=== PATIENT | male | born 1945 | race Caucasian/White ===

== ENCOUNTER → 2021-04-24 09:01 | Outpatient (CLI) | payer OTHER, SELFPAY ==
[2021-04-24 13:48] LABS: COVID19 -Nasal RAPID Negative (Negative)
== END ==
PROVIDERS: Family Provider Family Medicine; PCP Family Medicine; Visit Provider Student in an Organized Health Care Education/Training Program
DX: Z01.812 Encounter for preprocedural laboratory examination (principal); Z20.822 Contact with and (suspected) exposure to COVID-19
CPT/HCPCS: 87635

== ENCOUNTER → 2021-04-25 07:44 | Outpatient (CLI) | payer OTHER, SELFPAY ==
--- NOTE | 2021-04-25 18:08 | DI.NM.S_ITS ---
DATE OF SERVICE: 04/25/2021 PROCEDURE PERFORMED: Exercise treadmill stress and rest myocardial perfusion imaging with gating to assess ejection fraction and regional wall motion. ORDERING PROVIDER: Dr. Emilia Siddiqi. INDICATIONS: The patient is a 76-year-old male with exertional dyspnea and recently discovered paroxysmal atrial fibrillation. EXERCISE TREADMILL TESTING: The patient was able to exercise for 7 minutes on a standard Can protocol suggesting very good exercise capacity with an ELLIOT of - 21%. He had a normal heart rate and blood pressure response to exercise, achieving a maximum heart rate of 139 BPM (110% of his predicted maximum). He had no chest discomfort or other anginal symptoms. His resting ECG shows sinus rhythm with normal ST segments. With exercise, he has increasingly frequent PACs, at times, in a bigeminal pattern with subsequent brief atrial tachycardia with a more prolonged episode of atrial tachycardia in the immediate recovery phase with heart rate up to 173 BPM that was self-limited, spontaneously converting back to sinus rhythm with PACs, briefly consecutively. There were no significant ST-segment shifts to suggest ischemia. At 6 minutes of exercise at a heart rate of 136 BPM, 24.6 millicuries of technetium-99m Myoview was injected and he was imaged 15 minutes later using a gated SPECT acquisition protocol. Earlier in the day while at rest, he had been injected with 11.0 millicuries of technetium-99m Myoview and imaged 20 minutes later, again using a gated quantitated SPECT protocol. FINDINGS: 1. Raw data: There is fairly good myocardial tracer uptake. Lung/heart ratio was normal at 0.29 with a normal TID ratio 0.76. 2. Quantitated gated SPECT: Post-stress ejection fraction is estimated at 60% without any focal wall motion abnormality. Resting ejection fraction is 68%. Left ventricular volumes are moderately increased with a resting end-diastolic volume of 177 mL. 3. Myocardial perfusion imaging: Post-stress supine images shows a fairly normal myocardial perfusion pattern with a mild defect in the proximal to mid inferior wall that resolves on prone imaging, consistent with diaphragmatic attenuation. The resting images show an identical perfusion pattern without any obvious areas of significant improvement. IMPRESSION: 1. Normal myocardial perfusion study for ischemia. 2. Mild fixed proximal to mid inferior wall perfusion defect that resolves on prone imaging, most consistent with diaphragmatic attenuation artifact. There is no evidence for significant myocardial ischemia or previous myocardial infarction. 3. Normal left ventricular systolic function with moderately increased left ventricular volumes but no focal wall motion abnormality. 4. Very good exercise capacity without angina or ECG evidence of ischemia. He had increasingly frequent supraventricular ectopy with a run of a regular atrial tachycardia in the immediate post-exercise phase at 173bpm that was self- limited. Dre Miller - Tanna/brandi doc#: [id number]/job#: [id number] dd: 04/25/2021 13:11:00 dt: 04/25/2021 17:39:00 DICTATING MD/COPIES TO: Chris Aguirre MD; Emilia Siddiqi DO COPIES MNE: SERVANDO;
== END ==
PROVIDERS: Family Provider Family Medicine; PCP Family Medicine; Referring Provider Family Medicine; Visit Provider Family Medicine
DX: I48.91 Unspecified atrial fibrillation (principal); I48.0 Paroxysmal atrial fibrillation; R06.00 Dyspnea, unspecified
CPT/HCPCS: 78452; 93017; A9502

== ENCOUNTER 2021-09-11 10:54 | Emergency (ER) | payer OTHER, SELFPAY ==
[2021-09-11 12:06] VITALS: BP 160/96; PULSE 62; RESP 18; TEMP 36.6; O2SAT 99; BMI 23.6
--- NOTE | 2021-09-11 12:25 | DI.US.S_ITS ---
PROCEDURE: US PERIPH VENOUS LOW EXTREM RT INDICATIONS: CALF PAIN TECHNIQUE: Real-time imaging, as well as color and pulse Doppler interrogation, were performed of the lower extremity deep veins from the inguinal ligament to the popliteal fossa. COMPARISON: None. FINDINGS: The common femoral, femoral and popliteal veins are normally compressible, and free of intraluminal thrombus. Color and pulse Doppler demonstrate normal phasic intraluminal flow. There is normal augmentation response to distal compression maneuver. IMPRESSION: No sonographic evidence of DVT. Dictated by: Heladio Montes M.D. on 09/11/2021 at 12:51 Approved by: Heladio Montes M.D. on 09/11/2021 at 12:51
--- NOTE | 2021-09-11 12:38 | ED.EXTPRO ---
HPI - Extremity Problem <Talha Mariano PA-C - Last Filed: 09/11/21 19:23> General Chief complaint: Extremity Problem,Nontraumatic Stated complaint: calf problem, possible blood clot Time Seen by Provider: 09/11/21 12:15 Source: patient Mode of arrival: Ambulatory History of Present Illness HPI Narrative: Patient is a 76-year-old male presenting to the emergency department today for right calf pain that began approximately 3 days ago. Patient states that he has experienced a ?dull throbbing? pain deep in his right calf for the past 3 days, noting that he woke up in the middle of the night last night with the pain. Of note, patient denies any recent trauma or surgeries, long car rides or plane rides, or history cancer. Patient denies pain elsewhere other than his right calf. No fever, chills, chest pain, cough, shortness of breath, pain with deep inspiration, diaphoresis, nausea, vomiting, diarrhea, abdominal pain, dysuria, hematuria, or any other concerning symptoms reported. Patient states that he is anticoagulated daily and has been taking his medications routinely. No other concerns were voiced at this time. Related Data Home Medications Medication Instructions Recorded Confirmed [IRON] 1 tab PO QPM #0 12/30/17 aspirin 81 mg tablet,delayed 81 mg PO QPM #0 12/30/17 release fenofibrate 160 mg tablet 160 mg PO QPM #0 12/30/17 lisinopril 10 mg tablet 10 mg PO QPM #0 12/30/17 multivitamin (Multiple Vitamins) 1 tab PO QPM #0 12/30/17 Previous Rx's Medication Instructions Recorded gzuxzhsrvv-jbufqprhsmvwh-qrmherth 1 - 2 tab PO Q4HP PRN #20 tab 12/30/17 50 mg-325 mg-40 mg tablet Allergies Allergy/AdvReac Type Severity Reaction Status Date / Time No Known Allergies Allergy Uncoded 12/30/17 15:40 Review of Systems <Talha Mariano PA-C - Last Filed: 09/11/21 19:23> Constitutional Constitutional: Denies chills, Denies fatigue, Denies fever(s), Denies frequent falls, Denies lethargy and Denies weakness Eyes Eyes: Denies loss of vision ENT Ears, Nose, Mouth, and Throat: Denies dizziness and Denies neck pain Cardiovascular Cardiovascular: Denies chest pain, Denies irregular heart rhythm, Denies lightheadedness, Denies palpitations, Denies dyspnea, Denies dyspnea on exertion and Denies orthopnea Respiratory Respiratory: Denies cough, Denies dyspnea, Denies dyspnea on exertion and Denies wheezing Gastrointestinal Gastrointestinal: Denies abdominal pain, Denies change in bowel habits, Denies diarrhea, Denies nausea and Denies vomiting Genitourinary Genitourinary: Denies hematuria, Denies flank pain, Denies urinary incontinence and Denies urinary urgency Musculoskeletal Musculoskeletal: Denies back pain, Denies joint swelling, Denies muscle weakness, Reports myalgias (Right calf pain), Denies neck pain, Denies numbness, Denies tingling and Reports other Integumentary/Breasts Skin/Breast: Denies pruritus, Denies erythema, Denies rash and Denies wounds Neurologic Neurologic: Denies behavioral changes, Denies confusion, Denies dizziness, Denies frequent falls, Denies loss of vision, Denies numbness, Denies tingling and Denies weakness Psychiatric Psychiatric: Denies behavioral changes and Denies confusion Endocrine Endocrine: Denies fatigue and Denies palpitations Allergic/Immunologic Allergic/Immunologic: Denies wheezing Patient History <Talha Mariano PA-C - Last Filed: 09/11/21 19:23> Social History Smoking Status: Never smoker Smoking Status: Never smoker alcohol intake frequency: 0-2 drinks per day Substance Use Type: does not use Exam <Talha Mariano PA-C - Last Filed: 09/11/21 19:23> Narrative Exam Narrative: GENERAL: [] year old patient appears stated age. Well-developed patient, in mild distress. HEAD: Atraumatic. Normocephalic. EYES: Pupils equal round and reactive. Extraocular motions intact. No scleral icterus. No injection or drainage. ENT: Nose without bleeding, purulent drainage. Throat without erythema, tonsillar hypertrophy or exudate. Airway patent. NECK: Trachea midline. Non tender CARDIOVASCULAR: Regular rate and rhythm without murmurs, gallops, or rubs. RESPIRATORY: Clear to auscultation. Breath sounds equal bilaterally. No wheezes, rales, or rhonchi. GASTROINTESTINAL: Abdomen soft, non-tender, nondistended. EXTREMITIES: No edema or joint tenderness. No significant swelling noted about the right lower extremity. No tenderness to palpation throughout the right calf, negative Homans sign. Tortuous varicose vein noted along the medial aspect of the right calf just inferior to the right medial knee. No appreciable warmth, erythema, or swelling noted about the calf. BACK: Nontender without deformity or crepitance. No flank tenderness. NEURO: AOx3. SKIN: No rash or erythema of visible areas Initial Vital Signs Initial Vital Signs: Vital Signs Temperature 97.9 F 09/11/21 12:06 Pulse Rate 62 09/11/21 12:06 Respiratory Rate 18 09/11/21 12:06 Blood Pressure 160/96 H 09/11/21 12:06 Pulse Oximetry 99 09/11/21 12:06 <Joya Marino MD - Last Filed: 09/18/21 07:30> Initial Vital Signs Initial Vital Signs: Vital Signs Temperature 97.9 F 09/11/21 12:06 Pulse Rate 62 09/11/21 12:06 Respiratory Rate 18 09/11/21 12:06 Blood Pressure 160/96 H 09/11/21 12:06 Pulse Oximetry 99 09/11/21 12:06 Course <Talha Mariano PA-C - Last Filed: 09/11/21 19:23> Course Course Narrative: Ultrasound of the right lower extremity obtained. Orders Ordered: ED Orders 09/11/21 12:25 US periph venous low extrem rt Stat Vital Signs Vital signs: Vital Signs - 8 hr 09/11/21 12:06 09/11/21 12:58 Temperature 97.9 F Pulse Rate 62 63 Respiratory Rate 18 18 Blood Pressure 160/96 H 165/98 H Pulse Oximetry 99 99 <Joya Marino MD - Last Filed: 09/18/21 07:30> Orders Ordered: ED Orders 09/11/21 12:25 US periph venous low extrem rt Stat Vital Signs Vital signs: Vital Signs - 8 hr 09/11/21 12:06 09/11/21 12:58 Temperature 97.9 F Pulse Rate 62 63 Respiratory Rate 18 18 Blood Pressure 160/96 H 165/98 H Pulse Oximetry 99 99 MDM - Extremity (Nontraumatic) <Talha Mariano PA-C - Last Filed: 09/11/21 19:23> Imaging Data US - DVT: Radiologist's Impression: PROCEDURE:? US PERIPH VENOUS LOW EXTREM RT ? INDICATIONS:? CALF PAIN ? TECHNIQUE:? Real-time imaging, as well as color and pulse Doppler interrogation, were performed of the lower extremity deep veins from the inguinal ligament to the popliteal fossa.? ? COMPARISON:? None. ? FINDINGS:? The common femoral, femoral and popliteal veins are normally compressible, and free of intraluminal thrombus.? Color and pulse Doppler demonstrate normal phasic intraluminal flow.? There is normal augmentation response to distal compression maneuver. ? ? IMPRESSION:? No sonographic evidence of DVT. ? ? Dictated by: Heladio Montes M.D. on 09/11/2021 at 12:51 ? ? Approved by: Heladio Montes M.D. on 09/11/2021 at 12:51 ? MDM Narrative Medical decision making narrative: To consider DVT versus superficial venous thrombosis versus thrombophlebitis versus cellulitis versus musculoskeletal pain versus muscle strain. Overall physical examination, history, and imaging are reassuring. Ultrasound of the right lower extremity in the emergency department stay returned negative for DVT. Discussed with patient results of imaging. At this time patient feels comfortable being discharged home. Strict return precautions were discussed with the patient prior to discharge. Discharge Plan Departure Patient Disposition: Home Clinical Impression: Acute pain of right lower extremity Instructions: DI for Leg Pain Activity Restrictions/Additional Instructions: *You have been diagnosed with acute right leg pain *What to do: *Please continue to take your regular medications as directed. [ ] New medication prescriptions sent to your pharmacy: [ ] [ ] New medication written as a paper prescription [X] No new medications given *Please follow up with your primary care provider in 2-3 days, call for an appointment. Let them know you were seen in the Emergency Department and that we ask that you be seen in follow up. We will electronically transmit a record of today's note if your PCP is in our system *If you do not have a primary care provider please contact the [facility] Resource line at [phone]. They will ask some questions about your medical history and help get you set up with a doctor in the community. *Return to Emergency Department if you should have any new, worsening or concerning symptoms, such as fever greater than 101 F, shaking chills, worsening pain, shortness of breath, chest pain, lower extremity swelling, persistent vomiting or other bothersome symptoms Prescriptions: No Action multivitamin [Multiple Vitamins] 1 EACH tablet 1 tab PO QPM Qty: 0 0RF fenofibrate 160 MG tablet 160 mg PO QPM Qty: 0 0RF lisinopril 10 MG tablet 10 mg PO QPM Qty: 0 0RF [IRON] 1 tab PO QPM Qty: 0 0RF aspirin 81 MG tablet,delayed release (DR/EC) 81 mg PO QPM Qty: 0 0RF fmartwbawg-uzpabwuumtkyv-iejp 1 EACH tablet 1 - 2 tab PO Q4HP PRNQty: 20 0RF Referrals: Alex Santos MD [Primary Care Provider] - <Joya Marino MD - Last Filed: 09/18/21 07:30> Cosign ED Attending Cosignature Attestation: I was immediately available in the department for consultation throughout this patient's visit. I agree with documentation as above. Joya Marino MD
[2021-09-11 12:58] VITALS: BP 165/98; PULSE 63; RESP 18; O2SAT 99
== END 2021-09-11 13:13 | disposition home or self-care (01) ==
PROVIDERS: Emergency Provider Physician Assistant; Family Provider Family Medicine; PCP Family Medicine
DX: M79.661 Pain in right lower leg (principal); Z79.82 Long term (current) use of aspirin
CPT/HCPCS: 93971; 99283; 99284

== ENCOUNTER 2021-11-19 09:08 | Emergency (ER) | payer OTHER, SELFPAY ==
[2021-11-19] VITALS (13 sets, daily range): BP systolic 110–145; BP diastolic 65–87; PULSE 52–79; RESP 15–33; TEMP 36.6; O2SAT 95–98; BMI 23.7
--- NOTE | 2021-11-19 09:16 | DI.RAD.S_ITS ---
PROCEDURE: XR CHEST 1V INDICATIONS: chest pain TECHNIQUE: One view of the chest was acquired. COMPARISON: None. FINDINGS: Surgical changes and devices: None. Lungs and pleura: Lungs are clear. No pleural effusions or pneumothorax. Mediastinum: Mediastinal contours appear normal. Heart size is normal. Bones and chest wall: No suspicious bony lesions. Overlying soft tissues appear unremarkable. IMPRESSION: No acute cardiopulmonary findings. Dictated by: Melody Sheppard M.D. on 11/19/2021 at 9:45 Approved by: Melody Sheppard M.D. on 11/19/2021 at 9:45
[2021-11-19 09:48] LABS: Add Manual Diff / Slide Review NO; Basophils Absolute Auto 0 /uL (0-100); Basophils Percent Auto 0.9 % (0-2); Eosinophils Absolute Auto 200 /uL (0-450); Eosinophils Percent Auto 3.8 % (2-4); Hematocrit 40.3 % (41-53); Hemoglobin 13.4 g/dL (13.5-17.5); Lymphocytes Absolute Auto 1000 /uL (1100-4500); Lymphocytes Percent Auto 23.9 % (25-40); Mean Corpuscular HGB Conc 33.4 % (30-36); Mean Corpuscular Hemoglobin 31.3 PG (26-34); Mean Corpuscular Volume 93.7 fL (80-100); Monocytes Absolute Auto 300 /uL (0-900); Monocytes Percent Auto 7.2 % (3-14); Neutrophils Absolute Auto 2600 /uL (1500-7000); Neutrophils Percent Auto 64.2 % (50-75); Platelet Count 276 X10^3/uL (150-400); Red Cell Distribution Width 13.8 % (11.6-14.8); White Blood Cell Count 4.1 X10^3/uL (4.5-11.0)
--- NOTE | 2021-11-19 09:48 | DI.CT.S_ITS ---
PROCEDURE: CT HEAD/BRAIN WO CON INDICATIONS: dizzy for a few weeks on Pradaxa TECHNIQUE: Noncontrast 4.5 mm thick angled axial sections acquired from the foramen magnum to the vertex, with coronal and sagittal reformats. For radiation dose reduction, the following was used: automated exposure control, adjustment of mA and/or kV according to patient size. COMPARISON: [facility], CT, HEAD WITHOUT CONTRAST, 12/30/2017, 16:27. FINDINGS: Image quality: Excellent. CSF spaces: Basal cisterns are patent. No extra-axial fluid collections. The ventricles are symmetric in size and shape. Brain: No intracranial bleeds or masses. There is cerebral volume loss for age, with resultant ventricular and sulcal prominence. There are periventricular and deep white matter chronic small vessel ischemic changes. There is intracranial internal carotid artery atherosclerosis. Skull and face: Calvarium and visualized facial bones appear intact, without suspicious lesions. Sinuses: Visualized sinuses and mastoids are clear. IMPRESSION: No acute intracranial disease process. Dictated by: Vane Pinon MD, PhD on 11/19/2021 at 10:22 Approved by: Vane Pinon MD, PhD on 11/19/2021 at 10:26
--- NOTE | 2021-11-19 09:48 | ED.DIZZY ---
HPI - Dizziness General Chief Complaint: Syncope Stated Complaint: High BP, dizzy, fainted Time Seen by Provider: 11/19/21 09:28 Source: patient Mode of arrival: Family Vehicle History of Present Illness HPI Narrative: Patient is a 76-year-old male who is currently on Pradaxa in [facility] for probable atrial fibrillation. Presenting today with syncopal episode. He states that he has been dizzy and lightheaded that is worse with positioning ongoing for number of weeks. He says whenever he rolls over in bed he gets dizzy he says he is unstable when he gets up to walk to the restroom at night. However if he gets up slowly he feels okay. This morning he was living at out the dog when he abruptly fell to the ground. He lost consciousness briefly. His came to him. He has no numbness tingling or weakness. He has no nausea. He has had ongoing vision issues that he thinks is related to needing glasses or change in prescription. He denies any chest pain palpitations. Overall feeling better. He does not recall that he has a history of atrial fibrillation but cardiology did place him on Pradaxa in May 2021. He also states that yesterday he got short of breath going the stairs which is abnormal for him. Although he does occasionally have episodes here in there with shortness of breath. He denies any chest palpitations. Related Data Home Medications Medication Instructions Recorded Confirmed [IRON] 1 tab PO QPM #0 12/30/17 aspirin 81 mg tablet,delayed 81 mg PO QPM #0 12/30/17 release fenofibrate 160 mg tablet 160 mg PO QPM #0 12/30/17 11/19/21 multivitamin (Multiple Vitamins) 1 tab PO QPM #0 12/30/17 11/19/21 carvedilol 6.25 mg tablet 6.25 mg PO BID 11/19/21 11/19/21 dabigatran etexilate 150 mg 150 mg PO BID 11/19/21 11/19/21 capsule (Pradaxa) finasteride 5 mg tablet 5 mg PO DAILY 11/19/21 11/19/21 lisinopril 20 mg tablet 20 mg PO DAILY 11/19/21 11/19/21 tamsulosin 0.4 mg capsule 0.4 mg PO DAILY 11/19/21 11/19/21 Previous Rx's Medication Instructions Recorded hlsgnemrmk-mqgpjlstkzqlm-bwpvdtsi 1 - 2 tab PO Q4HP PRN #20 tab 12/30/17 50 mg-325 mg-40 mg tablet Allergies Allergy/AdvReac Type Severity Reaction Status Date / Time No Known Drug Allergies Allergy Verified 11/19/21 09:14 Review of Systems Review of Systems Narrative: GENERAL: Denies chills, fatigue, malaise, fever, sweats, travel HEENT: Denies sinus pain, ear pain, sore throat, difficulty swallowing, neck pain RESPIRATORY:+ see HPI Denies cough, wheezing, hemoptysis, sputum. CARDIOVASCULAR: Denies chest pain, palpitations, orthopnea, edema GASTROINTESTINAL: Denies nausea, vomiting, abdominal pain, diarrhea, constipation, melena. : Denies dysuria, frequency, incontinence, hematuria, urinary retention, flank pain. MUSCULOSKELETAL: Denies weakness, joint pain, or bony pain SKIN: No rash, no erythema, no pruritus NEUROLOGIC: See HPI PSYCHIATRIC: No concerning psychosocial issues. 12 point review of systems is negative except for those stated above and HPI Patient History Social History Smoking Status: Never smoker Smoking Status: Never smoker alcohol intake frequency: 0-2 drinks per day Substance Use Type: does not use Exam Initial Vital Signs Initial Vital Signs: Vital Signs Temperature 97.8 F 11/19/21 09:10 Pulse Rate 72 11/19/21 09:10 Respiratory Rate 20 11/19/21 09:10 Blood Pressure 122/74 11/19/21 09:10 Pulse Oximetry 97 11/19/21 09:10 GENERAL: Alert 76-year-old and in no acute distress. HEENT: Head atraumatic,EOMI, pupils reactive, face symmetric, moist mucous membranes CARDIOVASCULAR: Regular rate and rhythm without murmurs, rubs or gallops. RESPIRATORY: Breath sounds equal bilaterally, no wheezes rales or rhonchi. ABDOMEN: Soft, nontender. Normoactive bowel sounds all 4 quadrants. No guarding or rebound. EXTREMITIES: Normal range of motion, no clubbing or edema. Neurovascularly intact NEUROLOGICAL: Alert and oriented x4.Normal gait and speech. Cranial nerves II through XII grossly intact. Good bgnhjj-ol-nntu, good wvlv-zb-nira, strength equal bilaterally, no dysarthria or aphasia, sensation in tact to soft touch bilaterally, no visual changes, no facial droop SKIN: Warm, dry, no laceration, no petechiae, no rashes or lesions. Scores NIH Stroke Scale Level of Conciousness: Alert, keenly responsive Ask month/age: Answers both questions correctly. Open/close eyes, close hand: Performs both tasks correctly Best gaze horizontal: Normal Visual meadows: No visual loss Facial palsy: Normal symetrical movement Left arm drift: No drift for full 10 sec Right arm drift: No drift for full 10 sec Left leg drift: No drift for full 5 sec Right leg drift: No drift for full 5 sec Limb ataxia: Absent Sensory on face/arms/legs: Normal, no sensory loss Best language: No aphasia, normal Dysarthria: Normal Extinction or inattention: No abnormality Total NIH Stroke scale score: 0 Course Orders Ordered: Discontinued Medications Sodium Chloride (Normal Saline 0.9%) 1,000 mls @ 1,000 mls/hr IV BOLUS ONE Stop: 11/19/21 11:28 Last Infusion: 11/19/21 12:07 Dose: 0 mls/hr Documented by: Admin: 11/19/21 11:05 Dose: 1,000 mls/hr Documented by: GARRETT Vital Signs Vital signs: Vital Signs - 8 hr 11/19/21 11:06 11/19/21 11:07 11/19/21 11:30 Pulse Rate 64 60 60 Respiratory Rate 22 20 21 Blood Pressure 120/87 135/79 Pulse Oximetry 97 97 97 11/19/21 12:00 11/19/21 12:01 Pulse Rate 61 62 Respiratory Rate 19 15 Blood Pressure 145/85 H Pulse Oximetry 98 98 MDM - Dizziness Lab Data Result diagrams: 11/19/21 09:30 11/19/21 09:30 Labs: Lab Results 11/19/21 11/19/21 11/19/21 Range/Units 09:30 09:30 09:30 WBC 4.1 L (4.5-11.0) X10^3/uL RBC 4.30 L (4.5-5.9) X10^6/uL Hgb 13.4 L (13.5-17.5) g/dL Hct 40.3 L (41-53) % MCV 93.7 (80-100) fL MCH 31.3 (26-34) PG MCHC 33.4 (30-36) % RDW 13.8 (11.6-14.8) % Plt Count 276 (150-400) X10^3/uL Neut % (Auto) 64.2 (50-75) % Lymph % (Auto) 23.9 L (25-40) % [place] % (Auto) 7.2 (3-14) % Eos % (Auto) 3.8 (2-4) % Baso % (Auto) 0.9 (0-2) % Neut # (Auto) 2600 (4112-5072) /uL Lymph # (Auto) 1000 L (7538-0751) /uL [place] # (Auto) 300 (0-900) /uL Eos # (Auto) 200 (0-450) /uL Baso # (Auto) 0 (0-100) /uL PT 14.8 H (10.1-12.7) SECONDS INR 1.3 (0.9-1.3) APTT 48 H (26.4-36.2) SECONDS Sodium 139 (137-145) mmol/L Potassium 4.0 (3.4-5.1) mmol/L Chloride 106 (98-107) mmol/L Carbon Dioxide 25 (22-32) mmol/L BUN 21 H (9-20) mg/dL Creatinine 1.00 (0.66-1.25) mg/dL Estimated GFR > 60.0 (>60) mL/min BUN/Creatinine Ratio 21.0 (6-22) Glucose 107 (80-110) mg/dL Calcium 9.5 (8.4-10.2) mg/dL Magnesium 2.0 (1.6-2.3) mg/dL Total Bilirubin 0.7 (0.2-1.3) mg/dL AST 26 (17-59) IU/L ALT 16 (<50) IU/L Alkaline Phosphatase 41 (38-126) U/L Total Creatine Kinase 60 (55-170) U/L CK-MB (CK-2) TNP CK-MB (CK-2) Rel Index TNP Troponin I < 0.012 (0.01-0.034) ng/mL NT-Pro-B Natriuret Pep (<450) pg/mL Total Protein 7.4 (6.3-8.2) g/dL Albumin 4.6 (3.5-5.0) g/dL Globulin 2.8 (1.7-4.1) g/dL Albumin/Globulin Ratio 1.6 (1.0-2.8) Lipase 81 (23-300) U/L 11/19/21 Range/Units 09:53 WBC (4.5-11.0) X10^3/uL RBC (4.5-5.9) X10^6/uL Hgb (13.5-17.5) g/dL Hct (41-53) % MCV (80-100) fL MCH (26-34) PG MCHC (30-36) % RDW (11.6-14.8) % Plt Count (150-400) X10^3/uL Neut % (Auto) (50-75) % Lymph % (Auto) (25-40) % [place] % (Auto) (3-14) % Eos % (Auto) (2-4) % Baso % (Auto) (0-2) % Neut # (Auto) (5692-6111) /uL Lymph # (Auto) (3004-8474) /uL [place] # (Auto) (0-900) /uL Eos # (Auto) (0-450) /uL Baso # (Auto) (0-100) /uL PT (10.1-12.7) SECONDS INR (0.9-1.3) APTT (26.4-36.2) SECONDS Sodium (137-145) mmol/L Potassium (3.4-5.1) mmol/L Chloride (98-107) mmol/L Carbon Dioxide (22-32) mmol/L BUN (9-20) mg/dL Creatinine (0.66-1.25) mg/dL Estimated GFR (>60) mL/min BUN/Creatinine Ratio (6-22) Glucose (80-110) mg/dL Calcium (8.4-10.2) mg/dL Magnesium (1.6-2.3) mg/dL Total Bilirubin (0.2-1.3) mg/dL AST (17-59) IU/L ALT (<50) IU/L Alkaline Phosphatase (38-126) U/L Total Creatine Kinase (55-170) U/L CK-MB (CK-2) CK-MB (CK-2) Rel Index Troponin I (0.01-0.034) ng/mL NT-Pro-B Natriuret Pep 1480 H (<450) pg/mL Total Protein (6.3-8.2) g/dL Albumin (3.5-5.0) g/dL Globulin (1.7-4.1) g/dL Albumin/Globulin Ratio (1.0-2.8) Lipase (23-300) U/L Imaging Data CT scan - head: Radiologist's Impression: PROCEDURE:? CT HEAD/BRAIN WO CON ? INDICATIONS:? dizzy for a few weeks on Pradaxa ? TECHNIQUE:? Noncontrast 4.5 mm thick angled axial sections acquired from the foramen magnum to the vertex, with coronal and sagittal reformats.? For radiation dose reduction, the following was used:? automated exposure control, adjustment of mA and/or kV according to patient size.? ? COMPARISON:? [facility], CT, HEAD WITHOUT CONTRAST, 12/30/2017, 16:27. ? FINDINGS:? Image quality:? Excellent.? ? CSF spaces:? Basal cisterns are patent.? No extra-axial fluid collections.? The ventricles are symmetric in size and shape.? ? Brain:? No intracranial bleeds or masses.? There is cerebral volume loss for age, with resultant ventricular and sulcal prominence.? There are periventricular and deep white matter chronic small vessel ischemic changes.? There is intracranial internal carotid artery atherosclerosis.? ? Skull and face:? Calvarium and visualized facial bones appear intact, without suspicious lesions.? ? Sinuses:? Visualized sinuses and mastoids are clear.? ? IMPRESSION:? No acute intracranial disease process. ? ? Dictated by: Vane Pinon MD, PhD on 11/19/2021 at 10:22 ? ? Chest x-ray: Radiologist's Impression: PROCEDURE:? XR CHEST 1V ? INDICATIONS:? chest pain ? TECHNIQUE:? One view of the chest was acquired.? ? COMPARISON:? None. ? FINDINGS:? ? Surgical changes and devices:? None.? ? Lungs and pleura:? Lungs are clear.? No pleural effusions or pneumothorax.? ? Mediastinum:? Mediastinal contours appear normal.? Heart size is normal.? ? Bones and chest wall:? No suspicious bony lesions.? Overlying soft tissues appear unremarkable.? ? IMPRESSION:? No acute cardiopulmonary findings. ? ? Dictated by: Melody Sheppard M.D. on 11/19/2021 at 9:45 ? ? Approved by: Melody Sheppard M.D. on 11/19/2021 at 9:45 ? ECG Data Interpretation: Atrial fibrillation rate [address] changes no priors to compare MDM Narrative Medical decision making narrative: Patient is on Pradaxa he has atrial fibrillation rate controlled here in the emergency department. He does have positive orthostatics with and change in heart rate. He has no focal deficits her negative head CT. He is ambulating in the ED without any difficulty overall feeling fine. At this time he is on multiple medications which may cause some orthostatic hypotension such as Flomax and finasteride. He has no focal deficits head CT is negative. He is given a L of IV fluids. BNP is elevated at 1400. At this time he is compensating he tolerated IV fluids well. He ambulated after the fluid no sign of shortness of breath or hypoxia. I did discuss with them water balance. Discussed with he and his to monitor for symptoms. Will hold off Lasix for now because of dizziness and vasovagal reaction. I discussed all findings with the patient and , Education has been performed regarding treatment plan, diagnosis, warning signs and symptoms and all concerns have been addressed. Verbally agree with and understood all of the above. Discharge Plan Departure Patient Disposition: Home Clinical Impression: Vasovagal syncope, Congestive heart failure Instructions: DI for Syncope in Adults (Fainting), Heart Failure Activity Restrictions/Additional Instructions: *You have been diagnosed with syncopal episode, congestive heart failure *What to do: I think some of her medications may be causing you to be dizzy. However the also at the beginning signs of congestive heart failure. He will likely need an echocardiogram and a primary care provider to look at your medications. Prostate medication can cause you to be dizzy and lightheaded with low blood pressures. *Continue to take medications as directed For now continue medication until instructed by primary *Follow up with your primary care provider in 2-3 days or call [phone] *Return to ER if you should have recurrent passing out, shortness of breath, chest pain, palpitations or any new, worsening or concerning symptoms Prescriptions: No Action multivitamin [Multiple Vitamins] 1 EACH tablet 1 tab PO QPM Qty: 0 0RF fenofibrate 160 MG tablet 160 mg PO QPM Qty: 0 0RF [IRON] 1 tab PO QPM Qty: 0 0RF aspirin 81 MG tablet,delayed release (DR/EC) 81 mg PO QPM Qty: 0 0RF hlsftdqxcq-ksjwkheuptwcm-eppd 1 EACH tablet 1 - 2 tab PO Q4HP PRNQty: 20 0RF Pradaxa 150 mg capsule 150 mg PO BID 0RF lisinopril 20 mg tablet 20 mg PO DAILY 0RF carvedilol 6.25 mg tablet 6.25 mg PO BID 0RF Label Comments: TAKE ONE TABLET BY MOUTH TWICE DAILY with meals finasteride 5 mg tablet 5 mg PO DAILY 0RF tamsulosin 0.4 mg capsule 0.4 mg PO DAILY 0RF Referrals: Alex Santos MD [Primary Care Provider] -
[2021-11-19 09:56] LABS: INR 1.3 (0.9-1.3); Prothrombin Time 14.8 SECONDS (10.1-12.7)
[2021-11-19 09:58] LABS: PTT Partial Thromboplastin Tim 48 SECONDS (26.4-36.2)
[2021-11-19 09:59] LABS: Alanine Aminotransferase 16 IU/L (<50); Albumin 4.6 g/dL (3.5-5.0); Albumin Globulin Ratio 1.6 (1.0-2.8); Alkaline Phosphatase 41 U/L (38-126); Aspartate Aminotransferase 26 IU/L (17-59); Bilirubin Total 0.7 mg/dL (0.2-1.3); Blood Urea Nitrogen 21 mg/dL (9-20); Calcium 9.5 mg/dL (8.4-10.2); Carbon Dioxide 25 mmol/L (22-32); Chloride 106 mmol/L (98-107); Creatine Kinase 60 U/L (55-170); Estimated Glomerular Filt Rate > 60.0 mL/min (>60); Globulin 2.8 g/dL (1.7-4.1); Glucose 107 mg/dL (80-110); HEMOLYSIS < 15 (0-50); Lipase 81 U/L (23-300); Sodium 139 mmol/L (137-145); Total Protein 7.4 g/dL (6.3-8.2)
[2021-11-19 10:10] LABS: Troponin I < 0.012 ng/mL (0.01-0.034)
[2021-11-19 10:27] LABS: NT-proBNP (BNP-Adult 18+) 1480 pg/mL (<450)
[2021-11-19] MEDS: SODIUM CHLORIDE 0.9% 1,000 ML 1000 ML IV (11:05)
--- NOTE | 2021-11-19 12:17 | PC.NURSE ---
ambulation trial went well. Patient was not short of breath, walked at a rather brisk pace which he said was his normal speed, gait was normal, patient stated no dizziness.
--- NOTE | 2021-11-19 12:25 | PC.NURSE ---
pt was able to walk without any difficulty. denies SOB, chest pain. vertigo or dizziness.
== END 2021-11-19 12:28 | disposition home or self-care (01) ==
PROVIDERS: Emergency Provider Emergency Medicine; Family Provider Family Medicine; PCP Family Medicine
DX: R55 Syncope and collapse (principal); R42 Dizziness and giddiness; I50.9 Heart failure, unspecified; I48.91 Unspecified atrial fibrillation; Z79.01 Long term (current) use of anticoagulants
CPT/HCPCS: 36415; 70450; 71045; 80053; 82550; 83690; 83735; 83880; 84484; 85025; 85610; 85730; 93005; 96360; 99284

== ENCOUNTER → 2021-12-13 08:50 | Outpatient (CLI) | payer OTHER, SELFPAY ==
--- NOTE | 2021-12-13 | DI.ECHO.S_ITS ---
[place] +---------+ Hospital +---------+ : : [address] [place] [address] : : : : [id number] : : : : Phone: [phone] : [phone]+ Echocardiogram Report + + :Name: SAVANNAH WINSTON Study Date: 12/13/2021 Height: 76 in : :[facility] ReadingLocation: Weight: 197 lb : : Gender: Male BSA: 2.2 m2 : :: 1945 Age: 76 yrs BP: 138/93 mmHg: :Reason For Study: syncope and collapse : :Ordering Physician: Jeanne : :Zina Performed By: Cat Archuleta : :Referring: Dr. Chris Melendez : + + Interpretation Summary Left ventricular wall thickness is mildly increased. The ejection fraction is estimated to be 40-45%. Diastolic function could not be accurately assessed due to atrial fibrillation. The right ventricle is mildly dilated. Right ventricular systolic function is at the lower limits of normal. There is severe biatrial enlargement. There is mild to moderate tricuspid regurgitation. PASP is approximately 40-45 mmHg. The ascending aorta is moderately enlarged. Procedure: A two-dimensional transthoracic echocardiogram with color flow and Doppler was performed. The study quality was technically adequate. There is no prior echocardiogram noted for this patient. The patient was in atrial fibrillation with heart rates between 63-86 bpm during the exam. Left Ventricle: The left ventricle is normal in size. Left ventricular wall thickness is mildly increased. There is no thrombus. The ejection fraction is estimated to be 40-45%. There is mild to moderate global hypokinesis of the left ventricle. Diastolic function could not be accurately assessed due to atrial fibrillation. Right Ventricle: The right ventricle is mildly dilated. Right ventricular systolic function is at the lower limits of normal. Atria: There is severe biatrial enlargement. Mitral Valve: There is a flat closure plane of the the mitral valve leaflets. The mitral valve is normal in structure and function. There is trace mitral regurgitation. Aortic Valve: The aortic valve is trileaflet. The aortic valve opens well. There is no aortic valve stenosis. There is trace aortic regurgitation. Tricuspid Valve: The tricuspid valve is normal in structure and function. There is mild to moderate tricuspid regurgitation. PASP is approximately 40-45 mmHg. Pulmonic Valve: The pulmonic valve is not well seen, but is grossly normal. Great Vessels: The aortic root is normal size. The ascending aorta is moderately enlarged. The aortic arch is normal in size. The IVC is dilated (diameter is greater than 2.1 cm) and it collapses less than 50% with a sniff. This suggests a high right atrial pressure of 15 mm Hg. Pericardium/ Pleura There is no pericardial effusion. There is no pleural effusion. MMode/2D Measurements & Calculations LVIDd: 4.4 cm LVOT diam: 2.1 cm LVIDs: 3.3 cm Ao root diam: 3.3 cm FS: 24.0 % asc Aorta Diam: 4.3 cm EPSS: 0.52 cm Ao Arch Diam (Prox Trans): 3.0 cm IVSd: 1.3 cm LVPWd: 1.1 cm LV king. diameter/BSA (cm/m^2): 2.0 LV sys. diameter/BSA (cm/m^2): 1.5 LA A2 area: 30.3 cm2 RA long axis: 5.6 cm LA A4 area: 30.7 cm2 RA area: 26.7 cm2 LA length (vol): 6.5 cm RA vol: 108.1 ml LA vol: 121.1 ml RA : 49.1 ml/m2 LA vol index: 55.0 ml/m2 IVC diam: 2.2 cm RVD1 (basal): 5.0 cm TAPSE: 1.6 cm Doppler Measurements & Calculations Ao V2 max: 117.8 cm/sec LVOT Max Bartolo: 75.3 cm/sec Ao V2 mean: 84.5 cm/sec LV V1 max P.3 mmHg Ao max P.6 mmHg LV V1 VTI: 16.5 cm Ao mean P.3 mmHg CHET(I,D): 2.4 cm2 Ao V2 VTI: 25.2 cm CHET(V,D): 2.3 cm2 sev ratio: 0.66 CHET indexed to BSA (cm^2/m^2): 1.1 AI P1/2t: 928.8 msec AI dec slope: 115.2 cm/sec2 Med Peak E' Bartolo: 5.9 cm/sec TR max bartolo: 255.5 cm/sec Lat Peak E' Bartolo: 11.5 cm/sec TR max P.2 mmHg MVA(VTI): 4.0 cm2 PA V2 max: 64.0 cm/sec PA V2 mean: 43.3 cm/sec PA mean P.83 mmHg PA pr(Accel): 52.9 mmHg MV V2 mean: 27.6 cm/sec SV(LVOT): 59.2 ml MV mean P.46 mmHg MV V2 VTI: 14.8 cm Reading Physician:09:55 AM
== END ==
PROVIDERS: Family Provider Family Medicine; PCP Family Medicine; Referring Provider Internal Medicine Cardiovascular Disease; Visit Provider Internal Medicine Cardiovascular Disease
DX: I07.1 Rheumatic tricuspid insufficiency (principal); I77.89 Other specified disorders of arteries and arterioles; R55 Syncope and collapse
CPT/HCPCS: 93306

== ENCOUNTER → 2022-06-16 15:42 | Outpatient (CLI) | payer OTHER, SELFPAY ==
--- NOTE | 2022-06-16 15:44 | DI.ECHO.S_ITS ---
[place] +---------+ Hospital +---------+ : : [address] : : : : [place] : : : : [id number] : : : : Phone: [phone] : : [phone]+ Echocardiogram Report + + :Name: SAVANNAH WINSTON Study Date: 06/16/2022 Height: 76 in : :[facility] ReadingLocation: Weight: 195 lb : : Gender: Male BSA: 2.2 m2 : :: 1945 Age: 77 yrs BP: 164/80 mmHg: :Reason For Study: Syncope : :Ordering Physician: : :Jeanne Izaguirre Performed By: John Neri : :Referring: Jeanne Izaguirre : + + Interpretation Summary There is mild concentric left ventricular hypertrophy. The ejection fraction is estimated to be 55-60%. Diastolic function could not be accurately assessed due to contradictory data. The right ventricle is mildly dilated. The right ventricular systolic function is normal. Both atria are severely dilated. There is mild mitral regurgitation. There is mild aortic regurgitation. There is mild tricuspid regurgitation. The right ventricular systolic pressure is estimated to be at least 39 mmHg based on an estimated right atrial pressure of 8 mm Hg. The ascending aorta is moderately enlarged. Compared to the prior study dated 12/13/2021, the rhythm is now sinus bradycardia (previously atrial fibrillation) and the ejection fraction has increased. Procedure: A two-dimensional transthoracic echocardiogram with color flow and Doppler was performed. The study quality was technically adequate. Comparison is made with the echocardiogram of 12/13/2021. Left Ventricle: The left ventricle is normal in size. There is mild concentric left ventricular hypertrophy. The ejection fraction is estimated to be 55-60%. There are no focal wall motion abnormalities. Diastolic function could not be accurately assessed due to contradictory data. Right Ventricle: The right ventricle is mildly dilated. The right ventricular systolic function is normal. Atria: Both atria are severely dilated. The interatrial septum grossly appears intact with no obvious evidence for an atrial septal defect. Mitral Valve: The mitral valve leaflets appear mildly thickened, but open well. There is mild mitral regurgitation. Aortic Valve: The aortic valve is trileaflet. There is no aortic valve stenosis. There is mild aortic regurgitation. Tricuspid Valve: The tricuspid valve is normal in structure and function. There is mild tricuspid regurgitation. The right ventricular systolic pressure is estimated to be at least 39 mmHg based on an estimated right atrial pressure of 8 mm Hg. Pulmonic Valve: The pulmonic valve is normal in structure and function. There is a trace or physiologic amount of pulmonic regurgitation. Great Vessels: The aortic root is normal size. The ascending aorta is moderately enlarged. The IVC is dilated (diameter is greater than 2.1 cm) yet it collapses greater than 50% with a sniff. This suggests a right atrial pressure of 8 mm Hg. Pericardium/ Pleura There is no pericardial effusion. There is no pleural effusion. MMode/2D Measurements & Calculations LVIDd: 5.5 cm LVOT diam: 2.3 cm LVIDs: 3.6 cm Ao root diam: 3.4 cm FS: 34.5 % asc Aorta Diam: 4.3 cm IVSd: 1.3 cm LVPWd: 1.0 cm LV king. diameter/BSA (cm/m^2): 2.5 LV sys. diameter/BSA (cm/m^2): 1.6 LA dimension: 4.8 cm RA long axis: 5.7 cm LA A2 area: 27.4 cm2 LA A4 area: 30.9 cm2 LA length (vol): 6.0 cm LA vol: 120.8 ml LA vol index: 55.1 ml/m2 LVLs ap4: 7.7 cm LVLd ap2: 8.4 cm LVLs ap2: 7.8 cm TAPSE_phl: 2.2 cm Doppler Measurements & Calculations Ao V2 max: 121.0 cm/sec LVOT Max Bartolo: 93.3 cm/sec Ao V2 mean: 79.7 cm/sec LV V1 max P.5 mmHg Ao max P.0 mmHg LV V1 VTI: 23.1 cm Ao mean P.0 mmHg CHET(I,D): 3.4 cm2 Ao V2 VTI: 28.4 cm CHET(V,D): 3.2 cm2 sev ratio: 0.81 CHET indexed to BSA (cm^2/m^2): 1.5 MV E max bartolo: 58.7 cm/sec TR max bartolo: 278.0 cm/sec MV A max bartolo: 30.4 cm/sec TR max P.9 mmHg MV E/A: 1.9 Med Peak E' Bartolo: 7.2 cm/sec E/E' med: 8.2 Lat Peak E' Bartolo: 9.4 cm/sec E/E' lat: 6.3 E/e' average: 7.2 MV dec time: 0.17 sec SV(LVOT): 96.0 ml AV VR_phl: 0.77 HCET(VTI)/BSA_phl: 1.5 MV P1/2t-pr_phl: 51.0 msec Reading Physician:09:18 AM
== END ==
PROVIDERS: Family Provider Family Medicine; PCP Family Medicine; Referring Provider Internal Medicine Cardiovascular Disease; Visit Provider Internal Medicine Cardiovascular Disease
DX: I77.89 Other specified disorders of arteries and arterioles (principal); I08.3 Combined rheumatic disorders of mitral, aortic and tricuspid valves; R55 Syncope and collapse
CPT/HCPCS: 93306

== ENCOUNTER → 2023-08-07 09:45 | Outpatient (CLI) | payer OTHER, SELFPAY ==
--- NOTE | 2023-08-07 | DI.NM.S_ITS ---
PROCEDURE: NM EMILEE PERF SPECT REST & STR Rest and exercise myocardial perfusion SPECT with gated imaging and ejection fraction RADIOPHARMACEUTICAL: 11.6 mCi Tc-99m sestamibi IV at rest and 24.9 mCi Tc-99m sestamibi IV at peak exercise. A one day-protocol was performed. INDICATIONS: Atherosclerotic heart disease TECHNIQUE: Radiopharmaceutical was injected at peak stress test, and also at rest. SPECT images were obtained. SPECT myocardial perfusion images were displayed in short axis, horizontal long axis, and vertical long axis views. Gated images were reviewed using Movista software. COMPARISON: None. CARDIAC STRESS: A standard Can treadmill exercise tolerance test was performed by the patient under the supervision of an attending staff. The patient exercised for 6 minutes and 0 seconds; functional aerobic impairment (ELLIOT) is -12%. Hemodynamic data: There is normal heart rate response to exercise stress. Patient achieved 118% of maximum predicted heart rate at peak exercise. Borderline hypertensive response to exercise (BP 140/98mmHg at rest, max BP 206/98mmHg). Symptoms: Patient denied chest pain during exercise. EKG: No diagnostic EKG changes of ischemia during exercise or recovery; rare PCVs present. FINDINGS: Raw data: There is good myocardial labeling by radiotracer. No significant motion artifacts. Tnaj-ti-pksnh ratio is 0.27 (normal is less than 0.38 for sestamibi tracer, and less than 0.50 for thallium tracer). Left ventricle function: Gated images demonstrate normal left ventricle wall thickening. No segmental wall motion abnormality. No transient ischemic dilation; TID is 0.83 (normal less than 1.3). The left ventricle post stress end-diastolic volume is 130 mL. Left ventricle stress ejection fraction is 68%; normal values are above 45%. Myocardial perfusion: There is normal distribution of activity in the left and right ventricular myocardium. No fixed or reversible perfusion defects. IMPRESSION: Low risk, normal treadmill nuclear stress test from inducible ischemia standpoint. 1) No perfusion evidence of ischemia or infarction. 2) Normal left ventricular size, wall motion, and systolic function (EF post stress 68%). 3) No ST changes during exercise or recovery. 4) No angina during the study. 5) Above average exercise tolerance (7.0METs, ELLIOT -12%). Target heart rate achieved. 6) Borderline hypertensive response to exercise (BP 140/98mmHg at rest, max BP 206/98mmHg). 7) Compared to the nuclear stress test done 04/25/2021, no significant change in perfusion images. Dictated by: Louise Orr MD on 08/07/2023 at 16:49 Approved by: Louise Orr MD on 08/07/2023 at 16:54
--- NOTE | 2023-08-07 | DI.ECHO.S_ITS ---
[place] [facility]+ [facility] +---------+ : : [address] : : : : [id number] : : : : Phone: [phone]+ Echocardiogram Report + + :Name: SAVANNAH WINSTON Study Date: 08/07/2023 Height: 76 in : :[facility] ReadingLocation: Weight: 193 lb : : Gender: Male BSA: 2.2 m2 : :: 1945 Age: 78 yrs BP: 160/104 mmHg: :Reason For Study: Atherosclerotic Heart Disease : :Ordering Physician: ANTHONY, : :JEANNE Grissom Performed By: Caro Vital : :Referring: JEANNE IZAGUIRRE : + + Interpretation Summary The ejection fraction is estimated to be 55-60%. Diastolic function could not be accurately assessed due to atrial fibrillation. The left atrium is severely dilated. The right ventricle is mildly dilated. The right ventricular systolic function is normal. The right atrium is moderately dilated. There is mild to moderate mitral regurgitation. There is mild aortic regurgitation. There is moderate tricuspid regurgitation. The right ventricular systolic pressure is estimated to be at least 50 mmHg based on an estimated right atrial pressure of 8 mm Hg. The ascending aorta is mild-moderately enlarged, 4.2 cm. Compared to the prior study dated 06/16/2022, there is an increase in the AV valvular regurgitation and RVSP. Procedure: A two-dimensional transthoracic echocardiogram with color flow and Doppler was performed. The study quality was technically adequate. Comparison is made with the echocardiogram of 06/16/2022. The patient was in atrial fibrillation with heart rates between 58-74 bpm during the exam. Left Ventricle: The left ventricle is normal in size. The ejection fraction is estimated to be 55-60%. Diastolic function could not be accurately assessed due to atrial fibrillation. Right Ventricle: The right ventricle is mildly dilated. The right ventricular systolic function is normal. Atria: The left atrium is severely dilated. The right atrium is moderately dilated. There is no Doppler evidence for an interatrial shunt. Mitral Valve: The mitral valve is normal. There is no mitral valve stenosis. There is mild to moderate mitral regurgitation. Aortic Valve: The aortic valve is trileaflet. There is no aortic valve stenosis. There is mild aortic regurgitation. Tricuspid Valve: The tricuspid valve is normal. There is no tricuspid stenosis. There is moderate tricuspid regurgitation. The right ventricular systolic pressure is estimated to be at least 50 mmHg based on an estimated right atrial pressure of 8 mm Hg. Pulmonic Valve: The pulmonic valve leaflets are thin and pliable; valve motion is normal. There is no pulmonic valvular stenosis. There is trace pulmonic regurgitation. Great Vessels: The aortic root is normal size. The ascending aorta is mild- moderately enlarged. The pulmonary artery is normal size. The IVC is dilated (diameter is greater than 2.1 cm) yet it collapses greater than 50% with a sniff. This suggests a right atrial pressure of 8 mm Hg. Pericardium/ Pleura There is no pericardial effusion. There is no pleural effusion. MMode/2D Measurements & Calculations LVIDd: 4.2 cm LVOT diam: 2.1 cm LVIDs: 3.4 cm Ao root diam: 3.3 cm FS: 19.7 % asc Aorta Diam: 4.2 cm IVSd: 1.2 cm LVPWd: 1.1 cm LV king. diameter/BSA (cm/m^2): 1.9 LV sys. diameter/BSA (cm/m^2): 1.6 LA A2 area: 22.1 cm2 RA long axis: 5.9 cm LA A4 area: 31.1 cm2 RA area: 23.0 cm2 LA length (vol): 6.7 cm RA vol: 75.8 ml LA vol: 86.3 ml RA : 34.7 ml/m2 LA vol index: 39.6 ml/m2 IVC diam: 2.7 cm TAPSE: 1.9 cm Doppler Measurements & Calculations Ao V2 max: 126.0 cm/sec LVOT Max Bartolo: 96.5 cm/sec Ao V2 mean: 84.1 cm/sec LV V1 max P.7 mmHg Ao max P.4 mmHg LV V1 VTI: 21.4 cm Ao mean P.2 mmHg CHET(I,D): 2.7 cm2 Ao V2 VTI: 28.5 cm CHET(V,D): 2.8 cm2 sev ratio: 0.75 CHET indexed to BSA (cm^2/m^2): 1.2 TR max bartolo: 325.6 cm/sec SV(LVOT): 77.2 ml TR max P.4 mmHg PA V2 max: 65.4 cm/sec PA V2 mean: 43.8 cm/sec PA mean P.86 mmHg PA pr(Accel): 43.0 mmHg Reading Physician:04:17 PM
== END ==
PROVIDERS: Family Provider Family Medicine; PCP Family Medicine; Referring Provider Internal Medicine Cardiovascular Disease; Visit Provider Internal Medicine Cardiovascular Disease
DX: I25.10 Atherosclerotic heart disease of native coronary artery without angina pectoris (principal); I42.9 Cardiomyopathy, unspecified; I08.3 Combined rheumatic disorders of mitral, aortic and tricuspid valves; I77.89 Other specified disorders of arteries and arterioles
CPT/HCPCS: 78452; 93017; 93306; A9502

== ENCOUNTER → 2024-06-14 09:58 | Outpatient (CLI) | payer OTHER, SELFPAY ==
--- NOTE | 2024-06-14 10:17 | EKG_ITS ---
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
[2024-06-14 10:41] LABS: Add Manual Diff / Slide Review NO; Basophils Absolute Auto 100 /uL (0-100); Basophils Percent Auto 1.9 % (0-2); Eosinophils Absolute Auto 200 /uL (0-450); Eosinophils Percent Auto 4.7 % (2-4); Hematocrit 37.6 % (41-53); Hemoglobin 12.8 g/dL (13.5-17.5); Lymphocytes Absolute Auto 900 /uL (1100-4500); Lymphocytes Percent Auto 20.4 % (25-40); Monocytes Absolute Auto 400 /uL (0-900); Monocytes Percent Auto 8.5 % (3-14); Neutrophils Absolute Auto 2900 /uL (1500-7000); Neutrophils Percent Auto 64.5 % (50-75); Platelet Count 298 X10^3/uL (150-400); Red Blood Cell Count 3.76 X10^6/uL (4.5-5.9); Red Cell Distribution Width 12.9 % (11.6-14.8); White Blood Cell Count 4.5 X10^3/uL (4.5-11.0)
[2024-06-14 10:46] LABS: Appearance Urine UA CLEAR; Bilirubin Urine UA NEGATIVE (NEGATIVE); Color Urine UA YELLOW; Glucose Urine UA NEGATIVE (Negative); Ketones Urine UA NEGATIVE (NEGATIVE); Leukocyte Esterase Urine UA NEGATIVE (NEGATIVE); Nitrite Urine UA NEGATIVE (Negative); Occult Blood Urine UA NEGATIVE (Negative); Protein Urine UA NEGATIVE (Negative); Urobilinogen Urine UA 0.2 E.U./dL (0.2); pH Urine UA 6.5 (4.5-8.0)
[2024-06-14 10:50] LABS: Bacteria Urine None Seen; Culture Indicated Urine Cult Not Indicated; RBC Urine None Seen (0-5/HPF); Squamous Epithelial Cell Urine None Seen (0-5/HPF); Urine Volume 10mL (spun); WBC Urine None Seen (0-5/HPF)
[2024-06-14 11:04] LABS: Hemoglobin A1C% w Est Avg Glu 5.5 % (4.0-6.0)
[2024-06-14 11:11] LABS: Carbon Dioxide 24 mmol/L (22-32); Chloride 102 mmol/L (98-107); HEMOLYSIS < 15 (0-50); Potassium 4.8 mmol/L (3.4-5.1); Sodium 132 mmol/L (137-145)
[2024-06-14 11:13] LABS: BUN Creatinine Ratio 16.4 (6-22); Blood Urea Nitrogen 21 mg/dL (9-20); Calcium 9.5 mg/dL (8.4-10.2); Estimated Glomerular Filt Rate 57 mL/min (>60); Glucose 92 mg/dL (80-110)
== END ==
PROVIDERS: Family Provider Family Medicine; PCP Family Medicine; Referring Provider Orthopaedic Surgery; Visit Provider Orthopaedic Surgery
DX: Z01.818 Encounter for other preprocedural examination (principal); Z01.812 Encounter for preprocedural laboratory examination; R73.9 Hyperglycemia, unspecified; N39.0 Urinary tract infection, site not specified
CPT/HCPCS: 36415; 80048; 81001; 83036; 85025; 93005; 93010

== ENCOUNTER 2024-08-11 08:45 | Day surgery (SDC) | payer OTHER, SELFPAY ==
[2024-07-27 08:28] VITALS: BMI 23.2
[2024-08-11] VITALS (11 sets, daily range): BP systolic 91–170; BP diastolic 51–88; PULSE 55–83; RESP 12–18; TEMP 36.1–37; O2SAT 95–100; BMI 23.5
--- NOTE | 2024-08-11 08:04 | DI.RAD.S_ITS ---
PROCEDURE: XR KNEE LT 1TO2V INDICATIONS: TKA TECHNIQUE: 2 views of the knee were acquired. COMPARISON: None. FINDINGS: Bones: No fractures or dislocations. No suspicious bony lesions. Well-aligned, intact left arthroplasty without hardware complication. Soft tissues: No joint effusion. No suspicious soft tissue calcifications. IMPRESSION: Well-aligned, intact left total knee arthroplasty without hardware complication. Dictated by: Javier Osullivan M.D. on 08/11/2024 at 16:10 Approved by: Javier Osullivan M.D. on 08/11/2024 at 16:11
[2024-08-11] MEDS: CELECOXIB 200 MG CAPSULE 400 MG PO (09:43)
[2024-08-11] MEDS: ACETAMINOPHEN 325 MG TABLET 975 MG PO (09:43)
[2024-08-11] MEDS: VANCOMYCIN 1,000 MG/200 ML PIGGYBACK 200 MG IV (09:59)
--- NOTE | 2024-08-11 10:32 | PM.PREOP ---
Pre-operative Note Interval Note History & Physical reviewed/Exam performed by Physician: Yes Changes to H&P: No
--- NOTE | 2024-08-11 10:34 | PM.OP.1 ---
Operative Date/Time/Diagnoses Date of procedure: 08/11/24 Time of procedure: 11:00 Pre-op diagnosis: Left knee OA Post-op diagnosis: same Procedure & Clinicians Procedure: Left total knee arthroplasty Same procedure as scheduled: Yes Indications: The patient has had progressively worsening left knee pain with radiographic changes consistent with arthritis. Non-operative management has failed and the patient has requested total knee replacement. The risks, benefits and alternatives to surgery were discussed with the patient prior to proceeding. Risks discussed included, but were not limited to, failure to relieve pain, stiffness, infection, nerve damage, deep venous thrombosis, pulmonary embolism, stroke, coma, heart attack, permanent paralysis and , as well as the potential need for eventual revision of the prosthetic. Surgeon: Valarie Jensen Mail Processing Equipment Mechanic: Elijah Park Anesthesia Type: General and Peripheral nerve block Operative Notes Findings: Severe left knee OA, adequate stability, adequate bone Closure Type: primary Specimen(s): none sent Prosthetic devices, grafts, tissues, transplants, or devices: Jensen and nephew bryanney BCS 2 size 9 femur, 7 tibia, poly 9, patella 38 oval Estimated Blood Loss (mL): 250 Blood products transfused: none Procedure in detail: The patient was seen in the pre-operative area, where the patient identified the left knee as the operative site and this was marked with my initials. The patient received pre-operative antibiotics, and was taken to the operating room and placed on the operative table in the supine position. After satisfactory anesthesia, a assistant superintendent out was performed. The left leg was encircled with a tourniquet about the proximal thigh, and the leg was prepared from the toes to the tourniquet with ChloroPrep in the usual fashion and draped through sterile drapes. The leg was elevated and exsanguinated with Eschmark bandage and the tourniquet inflated to [250] mmHg pressure. A PA was used during the procedure was essential for intraoperative retraction and safe implantation of the components. The knee was approached through an approximately 18 cm incision centered over the patella and carried into the knee through a medial parapatellar arthrotomy. Portion of the medial and lateral meniscus was resected. Soft tissue was carefully mobilized around the patella the patella was measured with a caliper. Bone was resected from the patella and the patellar height was reconstituted with up an appropriate sized patellar component. A cover was then placed on the patella. A small amount of additional medial and lateral meniscus was resected. Jorge pins were placed in the femur and the adjustable navigated guide for the tibia was pinned to the tibia. The knee was meticulously mapped for robotic assisted navigated total knee arthroplasty. A plan was taken and carefully developed in order to optimize range of motion and stability. The Cori robotic bur was used for resecting the distal femur. It looked like an appropriate distal femoral cut and the cut was made without difficulty. The rotation was assessed and the appropriate size femoral guide was placed on the distal femur and finishing cuts were made. There was no evidence of notching. The anterior, posterior and chamfer cuts were then made. The posterior osteophytes and soft tissues were then removed. The posterior capsule was injected with part of a mixture of 60 ml 0.25% Marcaine mixed with 20 ml Exparel for post operative pain control. The remainder of this mixture was injected into the capsule and subcutaneous tissues during cement curing. The tibial guide was carefully navigated using the robotic assistance. Proximal tibial cut was made without difficulty. The rotation was assessed. The patient was placed in extension residual medial and lateral meniscus as well as any residual bone was carefully resected. [No] additional tibia was resected. Hemostasis was achieved especially posteriorly. Additional local was injected into the posterior capsule. The extension gap was assessed. The femoral component was trial was placed and the notch was finished. Trial tibial and femoral components were then placed and the knee placed through a range of motion. Range of motion was [0-130], with good stability throughout the range. The trials were then removed, and the tibia was finished. The bone was prepared with pulsatile lavage, and dried with a sponge. Cement was applied and the final prosthetics placed. Excess cement was removed during and after cement curing. A brief Betadine soak was performed. After confirming there was no extruded cement posteriorly, the final tibial insert was placed. The knee was copiously irrigated and the tourniquet deflated. Hemostasis was obtained with the Bovie cautery. The capsule was closed with interrupted # 1 Vicryl suture. The subcutaneous layer was closed with barbed sutures, and the skin with a running 3-0 V-Lock suture and Surgical glue. An Aquacel Ag dressing was applied and the patient was taken to recovery having tolerated the procedure well. Complications: none Post-operative Condition: stable Disposition: Acute Care Plan for aftercare: The patient will be maintained on a standard total knee replacement protocol with weight bearing as tolerated. The patient will receive Pradaxa to start on and sequential compression devices for DVT prophylaxis. The patient will be discharged home when safe for the home environment.
[2024-08-11] MEDS: CEFAZOLIN 2 GM/100 ML PREMIX 100 ML IV ×2 (11:19→18:10)
[2024-08-11] MEDS: TRANEXAMIC ACID 1,000 MG VIAL 1000 MG INJ ×2 (11:20→13:41)
--- NOTE | 2024-08-11 11:59 | SUR.OPER ---
Supine on padded OR bed. Pillow under head, arms secured on padded armboards <90 degree abduction. Safety belt across torso. Non-operative leg secured with tape over blanket over lower leg. Operative leg secured in DeMayo/Cecil/Nathe positioner. Foam padded brace at thigh of operative leg.
[2024-08-11] MEDS: BUPIVACAINE LIPOSOME 266 MG/20 ML VIAL INJ (12:06)
[2024-08-11] MEDS: BUPIVACAINE 0.25% (PF) 30 ML, EPINEPHrine 0.15 MG INJ (12:07)
--- NOTE | 2024-08-11 14:38 | SUR.PHASEI ---
Adductor Canal Block in PACU: Adductor canal block performed in PACU. Time out at 1437. HR 73, bp 116/68, rr12, sao2 98% on room air. Start 1441. Patient tolerated well. vss throughout procedure.
[2024-08-11] MEDS: TAMSULOSIN 0.4 MG CAPSULE PO (16:18)
[2024-08-11] MEDS: FENOFIBRATE, MICRONIZED 67 MG CAPSULE 134 MG PO (16:18)
[2024-08-11] MEDS: FINASTERIDE 5 MG TABLET PO (16:18)
[2024-08-11] MEDS: LACTATED RINGERS 1,000 ML 100 ML IV (16:19)
[2024-08-11] MEDS: DICLOFENAC 1% GEL 100 GM 1 APPLIC TOP (16:52)
--- NOTE | 2024-08-11 16:53 | PT.IIE ---
Current Diagnoses Unilateral primary osteoarthritis, left knee (08/11/24) Surgery Performed Operation Date: 08/11/24 10:45 Actual Procedures p Total Knee Arthroplasty - Robot(Left) - Valarie Jensen MD Surgical History (Last Updated 07/27/24 @ 09:35 by rAcelia Batista, RN) History of cardiac radiofrequency ablation (02/2022) History of hernia repair History of tonsillectomy Medical History (Last Updated 07/27/24 @ 10:52 by Arcelia Batista, RN) A-fib Ascending aorta dilatation Foreman's cyst of knee BPH (benign prostatic hyperplasia) CAD (coronary artery disease) Cardiomyopathy CHF (congestive heart failure) DJD (degenerative joint disease) History of cardioversion (11/09/23) HLD (hyperlipidemia) HTN (hypertension) Normal cardiac ejection fraction (08/07/23) Osteoarthritis PSVT (paroxysmal supraventricular tachycardia) Physical Therapy Inpatient Evaluation/Re-Eval M1 PT/OT-IP Prior Functional Status Start: 08/11/24 16:11 Freq: NEEDED Status: Active Protocol: Document 08/11/24 16:20 MB (Rec: 08/11/24 16:53 MB [id number]) Medical Review Prior Functional Status Medical History Reviewed Yes Diet/Fluid Consistency Regular Communication WNLs Mobility and Gait I, no AD Activities of Daily Living and IADL's I Social History Household Members spouse Living Arrangements House Number of Floors (Floors) 3 or More Floors Number of Stairs To Enter/Railing? Tri-level. 7 steps x2 with railing up/ down to bed room. 3 steps without railing to enter one entrance and no steps back entrance. Home Environment High Toilet,Walk in Shower Home Equipment Front Wheel Walker,Grab Bars Near Toilet,Grab Bars In Shower Employment Status Retired M2 PT-IP Current Condition Start: 08/11/24 16:11 Freq: NEEDED Status: Active Protocol: Document 08/11/24 16:20 MB (Rec: 08/11/24 16:53 MB [id number]) Physical Therapy Current Condition Current Condition Evaluation Date 08/11/24 Treatment Diagnosis L TKR M3 PT-IP Subjective Start: 08/11/24 16:11 Freq: NEEDED Status: Active Protocol: Document 08/11/24 16:20 MB (Rec: 08/11/24 16:53 MB [id number]) Subjective Physical Therapy Visit Type Type Initial Evaluation Visit Start Time 16:20 Visit Stop Time 16:40 Number of DAY TREATMENT CLINICIAN/ART THERAPIST Visits 0 Physical Therapy Visit Comments Patient Comments Pt is hypoverbal and answers questions Therapy Pain Assessment Pain When Pain Assessed At Rest Pain Present Pain Present Pain Reported Location Left Knee Intensity 2 Scale Used Numeric (0 - 10) M4 PT-IP Mobility and Gait Start: 08/11/24 16:11 Freq: NEEDED Status: Active Protocol: Document 08/11/24 16:20 MB (Rec: 08/11/24 16:53 MB [id number]) PT-Bed Mobility Assessment Supine to Sit Supine to Sit Standby Assistance,1 Person Assistance,Head of Bed Elevated,Bedrails Scooting Scooting to Edge of Bed Standby Assistance PT-Transfer Assessment Sit to and From Stand Sit to and from Stand Contact Guard Assistance,1 Person Assistance,Use of Upper Extremities Equipment Transfer Assistive Device Gait Belt,Front Wheeled Walker Orthotic/Prosthetic Devices or Brace: No Transfers Transfer Destination Chair Transfer Technique Ambulation Transfer Ability Level of Assist Contact Guard Assistance,1 Person Assistance,Use of Upper Extremities Comments Mobility Comments Cues to push up from the bed and not from the walker. PT checks orthostatics and BP and HR in LUE in hook lyin/ 79, 61; standing 91/61, 77 and machine does not read after stepping to the chair Gait Assessment Gait Gait Assistance Required: Contact Guard Assist Distance (Feet) 3 Able to Maintain Weight Bearing Status Yes During Gait Assistive Devices Assistive Device Gait Belt,Front Wheeled Walker Orthotic/Prosthetic Devices or Brace: No Gait Deviations General Gait Pattern Decreased Stride Length, Decreased Feet Clearance, Flexed Trunk,Step-to Gait,Wide Based Gait Factors Limiting Gait Function Factors Limiting Gait Function Decreased Activity Tolerance, Decreased Strength,Difficulty Following Directions,Limited Range of Motion,Pain,Poor Balance,Poor Safety Awareness Comments Gait Comments Cues to keep walker with him PT-Balance Assessment Sitting Balance and Reactions Static Sitting Balance Ability Good Dynamic Sitting Balance Ability Good Standing Balance and Reactions Static Standing Balance Ability Good Dynamic Standing Balance Ability Good Device Used RW M5 PT-IP Objective Assessments Start: 08/11/24 16:11 Freq: NEEDED Status: Active Protocol: Document 08/11/24 16:20 MB (Rec: 08/11/24 16:53 MB [id number]) Orientation Orientation/Cognition Level of Alertness Alert Orientation Name,Age,Birthday,Month,Date, Year,Day of Week,Place, Situation Language Function Ability No Deficits Noted Safety Awareness Decreased Safety Awareness Memory Description No Deficits Noted Comments Pt is hypoverbal and states that pt is still medicated as far as cognitive presentation Gross Range of Motion Upper Extremity ROM Impairments Defer to OT Lower Extremity ROM Assessment Left Impaired Impairments Left knee AROM in supine 5-70 deg Strength Comments Strength Comments LLE weak post-op today Coordination Assessment Gross Coordination Gross Coordination Impaired Assessment Coordination Comments Slow movement post-op Sensation Assessment Comments Sensation Comments Pt does not answer sensory questions Muscle Tone Muscle Tone WNL Yes M6 PT-IP Treatment Start: 08/11/24 16:11 Freq: NEEDED Status: Active Protocol: Document 08/11/24 16:20 MB (Rec: 08/11/24 16:53 MB [id number]) Physical Therapy Treatment Exercises Exercises Ankle Pumps,Gluteal Sets,Quad Sets,Heel Slides Education Education Provided Post-Op Packet,Safety M7 PT-IP Assessment and Plan Start: 08/11/24 16:11 Freq: NEEDED Status: Active Protocol: Document 08/11/24 16:20 MB (Rec: 08/11/24 16:53 MB [id number]) PT Summary Assessment and Plan Potential Rehabilitation Potential Good Status of Condition at Evaluation Evolving Summary Impairments Pain,ROM,Strength,Balance, Coordination,Sensation, Cognition,Bed Mobility, Transfers,Gait,Activity Tolerance Progress Towards Goals Slow Progress due to Activity Tolerance Assessment Summary Pt is an 79 y/o male presenting with orthostasis and some cognitive/ communication changes same day left TKA. Pt participates well with PT and requires CGA and cues for hand placement and walker use. Recommend up for meals with nsg. states they have an entrance into home without steps but there are steps insed the split level home. If pt is better next date, stair training is a good idea. Goals Bed Mobility Goal Independent Transfer Goal Independent,Front Wheeled Walker Gait Goal Independent,Front Wheel Walker Gait Distance 100 Other Goals Pt will ascend and descend at least 3 steps with rail and no more than superv to allow home mobility. Days to Meet Goals 2 Frequency of Treatment Frequency Of Treatment Twice a Day Treatment Plan Physical Therapy Treatment Plan Bed Mobility Training,Transfer Training,Gait Training, Therapeutic Exercise,Balance Retraining,Post Op Education, Discharge Planning,Hot or Cold Pack,Neuromuscular Re-ed, Coordination Retraining,Manual Therapy Weight Bearing Status Weight Bearing Status Weight Bear as Tolerated Recommendations To Nursing Amount of Assist Needed 1 Person Assist Discharge Recommendations PT Discharge Recommendations Home with Assistance, Outpatient PT Transportation Needs at Discharge Private Vehicle
[2024-08-11] MEDS: ASPIRIN EC 81 MG TABLET PO (21:29)
[2024-08-11] MEDS: DOCUSATE 100 MG CAPSULE PO (21:29)
[2024-08-12 02:00] VITALS: BP 113/68; PULSE 65; RESP 16; TEMP 36.9; O2SAT 97
[2024-08-12] MEDS: OXYCODONE IR 5 MG TABLET PO ×3 (02:10→13:42)
[2024-08-12] MEDS: CEFAZOLIN 2 GM/100 ML PREMIX 100 ML IV (02:10)
[2024-08-12 06:00] VITALS: BP 112/59; PULSE 64; RESP 16; TEMP 37.1; O2SAT 95
[2024-08-12 06:24] LABS: Hematocrit 31.2 % (41-53); Hemoglobin 10.6 g/dL (13.5-17.5)
[2024-08-12 08:00] VITALS: BP 107/64; PULSE 71; RESP 16; TEMP 37.1; O2SAT 93
--- NOTE | 2024-08-12 09:00 | PT.IPTN ---
Current Diagnoses Unilateral primary osteoarthritis, left knee (08/11/24) Surgery Performed Operation Date: 08/11/24 10:45 Actual Procedures p Total Knee Arthroplasty - Robot(Left) - Valarie Jensen MD Physical Therapy Treatment Note M2 PT-IP Current Condition Start: 08/11/24 16:11 Freq: NEEDED Status: Active Protocol: Document 08/11/24 16:20 MB (Rec: 08/11/24 16:53 MB [id number]) Physical Therapy Current Condition Current Condition Evaluation Date 08/11/24 Treatment Diagnosis L TKR M3 PT-IP Subjective Start: 08/11/24 16:11 Freq: NEEDED Status: Active Protocol: Document 08/12/24 10:54 TS (Rec: 08/12/24 11:25 TS [id number]) Subjective Physical Therapy Visit Type Type Treatment Note Visit Start Time 09:00 Visit Stop Time 09:32 Number of POWER BENDER OPERATOR Visits 1 Physical Therapy Visit Comments Patient Comments Pt is resting in bed, he is agreeable to PT. Therapy Pain Assessment Pain When Pain Assessed At Rest Pain Present Pain Present Pain Reported M4 PT-IP Mobility and Gait Start: 08/11/24 16:11 Freq: NEEDED Status: Active Protocol: Document 08/12/24 10:54 TS (Rec: 08/12/24 11:25 TS [id number]) PT-Bed Mobility Assessment Supine to Sit Supine to Sit Standby Assistance,1 Person Assistance,Head of Bed Elevated,Bedrails Scooting Scooting to Edge of Bed Standby Assistance PT-Transfer Assessment Sit to and From Stand Sit to and from Stand Contact Guard Assistance,1 Person Assistance,Use of Upper Extremities Equipment Transfer Assistive Device Gait Belt,Front Wheeled Walker Orthotic/Prosthetic Devices or Brace: No Comments Mobility Comments BP in supine 123/67. Pt performs heel slides and quad sets prior to mobility. Supine to sit SBA with HOB elevated, BP in sitting 112/59, reports some lightheadedness. STS with FWW Serge from EOB. BP in standing 82/53, pt reports increased lightheadedness. He ambualtes in the room ~40'CGA from spouse. Pt sat in the chair, BP 113/59. Pt was left in the chair, all needs met. Gait Assessment Gait Gait Assistance Required: Contact Guard Assist Distance (Feet) 40 Able to Maintain Weight Bearing Status Yes During Gait Assistive Devices Assistive Device Gait Belt,Front Wheeled Walker Orthotic/Prosthetic Devices or Brace: No Gait Deviations General Gait Pattern Decreased Stride Length, Decreased Feet Clearance, Flexed Trunk,Step-to Gait,Wide Based Gait Factors Limiting Gait Function Factors Limiting Gait Function Decreased Activity Tolerance, Decreased Strength,Difficulty Following Directions,Limited Range of Motion,Pain,Poor Balance,Poor Safety Awareness PT-Balance Assessment Sitting Balance and Reactions Static Sitting Balance Ability Good Dynamic Sitting Balance Ability Good Standing Balance and Reactions Static Standing Balance Ability Good Dynamic Standing Balance Ability Good Device Used RW M5 PT-IP Objective Assessments Start: 08/11/24 16:11 Freq: NEEDED Status: Active Protocol: Document 08/11/24 16:20 MB (Rec: 08/11/24 16:53 MB [id number]) Orientation Orientation/Cognition Level of Alertness Alert Orientation Name,Age,Birthday,Month,Date, Year,Day of Week,Place, Situation Language Function Ability No Deficits Noted Safety Awareness Decreased Safety Awareness Memory Description No Deficits Noted Comments Pt is hypoverbal and states that pt is still medicated as far as cognitive presentation Gross Range of Motion Upper Extremity ROM Impairments Defer to OT Lower Extremity ROM Assessment Left Impaired Impairments Left knee AROM in supine 5-70 deg Strength Comments Strength Comments LLE weak post-op today Coordination Assessment Gross Coordination Gross Coordination Impaired Assessment Coordination Comments Slow movement post-op Sensation Assessment Comments Sensation Comments Pt does not answer sensory questions Muscle Tone Muscle Tone WNL Yes M6 PT-IP Treatment Start: 08/11/24 16:11 Freq: NEEDED Status: Active Protocol: Document 08/12/24 10:54 TS (Rec: 08/12/24 11:25 TS [id number]) Physical Therapy Treatment Education Education Provided Post-Op Packet,Safety M7 PT-IP Assessment and Plan Start: 08/11/24 16:11 Freq: NEEDED Status: Active Protocol: Document 08/12/24 10:54 TS (Rec: 08/12/24 11:25 TS [id number]) PT Summary Assessment and Plan Potential Rehabilitation Potential Good Summary Impairments Pain,ROM,Strength,Balance, Coordination,Sensation, Cognition,Bed Mobility, Transfers,Gait,Activity Tolerance Progress Towards Goals Progressing Toward Goals Assessment Summary Pt is making progress with his mobility. He performs bed mobility SBA with HOB elevated . He progressed his ambulation to ~40'CGA. Pt has some lightheadedness and he is orthostatic. PT is recommending home with assist and outpatient PT. Goals Bed Mobility Goal Independent Transfer Goal Independent,Front Wheeled Walker Gait Goal Independent,Front Wheel Walker Gait Distance 100 Other Goals Pt will ascend and descend at least 3 steps with rail and no more than superv to allow home mobility. Days to Meet Goals 2 Frequency of Treatment Frequency Of Treatment Twice a Day Treatment Plan Physical Therapy Treatment Plan Bed Mobility Training,Transfer Training,Gait Training, Therapeutic Exercise,Balance Retraining,Post Op Education, Discharge Planning,Hot or Cold Pack,Neuromuscular Re-ed, Coordination Retraining,Manual Therapy Weight Bearing Status Weight Bearing Status Weight Bear as Tolerated Recommendations To Nursing Amount of Assist Needed 1 Person Assist Discharge Recommendations PT Discharge Recommendations Home with Assistance, Outpatient PT Transportation Needs at Discharge Private Vehicle
[2024-08-12] MEDS: AMIODARONE 200 MG TABLET 100 MG PO (09:32)
[2024-08-12] MEDS: DOCUSATE 100 MG CAPSULE PO (09:33)
[2024-08-12] MEDS: ASPIRIN EC 81 MG TABLET PO (09:33)
[2024-08-12] MEDS: MULTIVITAMIN 1 TABLET 1 TAB PO (09:33)
[2024-08-12] MEDS: FERROUS SULFATE 325 MG TABLET PO (09:33)
[2024-08-12] MEDS: ACETAMINOPHEN 325 MG TABLET 650 MG PO (09:34)
--- NOTE | 2024-08-12 10:14 | PM.DS.1 ---
History of Present Illness History of Present Illness Date Patient Seen: 08/12/24 Time Patient Seen: 07:20 Chief complaint: OPB Narrative: Operative Date/Time/Diagnoses Date of procedure: 08/11/24 Time of procedure: 11:00 Pre-op diagnosis: Left knee OA Post-op diagnosis: same Procedure & Clinicians Procedure: Left total knee arthroplasty Same procedure as scheduled: Yes Indications: The patient has had progressively worsening left knee pain with radiographic changes consistent with arthritis. Non-operative management has failed and the patient has requested total knee replacement. The risks, benefits and alternatives to surgery were discussed with the patient prior to proceeding. Risks discussed included, but were not limited to, failure to relieve pain, stiffness, infection, nerve damage, deep venous thrombosis, pulmonary embolism, stroke, coma, heart attack, permanent paralysis and , as well as the potential need for eventual revision of the prosthetic. Surgeon: Valarie Jensen Consumer Marketing Analyst: Elijah Park Anesthesia Type: General and Peripheral nerve block Operative Notes Findings: Severe left knee OA, adequate stability, adequate bone Closure Type: primary Specimen(s): none sent Prosthetic devices, grafts, tissues, transplants, or devices: Jensen and nephew jose a BCS 2 size 9 femur, 7 tibia, poly 9, patella 38 oval Estimated Blood Loss (mL): 250 Blood products transfused: none Discharge Providers Provider Discharge Date: 08/12/24 Primary care physician: Alex Santos MD Consults: 07/27/24 09:28 Consult to Anesthesiology Routine Comment: Consulting Provider: Anesthesiologist Reason for consultation: Surgeon request - cardiac. 08/11/24 08:04 Consult to Anesthesiology Routine Comment: Consulting Provider: Anesthesiologist Reason for consultation: Regional block for post operative pain control 08/11/24 14:52 Consult to Discharge Planning Routine Comment: Consult to Occupational Therapy Evaluate & Treat Comment: Physician Instructions: Evaluate and treat Consult to Physical Therapy Evaluate & Treat Comment: Physician Instructions: postop TKA protocol Discharge provider: Magi Serrato PA-C Summary Hospital Course Discharge Diagnosis: Left knee osteoarthritis, s/p left total knee arthroplasty Hospital Course: Mr Miller's hospital course was unremarkable. On the morning of POD# 1, he was feeling well and wanted to go home. He was eating and voiding without difficulty and his pain was well-controlled with oral medication. He had been OOB multiple times but had not yet worked w/ PT. Exam Vital Signs (past 8 hours): - 08/12/24 06:00 08/12/24 08:00 Temperature 98.7 F 98.7 F Pulse Rate 64 71 Respiratory Rate 16 16 Blood Pressure 112/59 L 107/64 Pulse Oximetry 95 93 Oxygen Flow Rate 0 0 Oxygen Delivery Method Room Air Oxygen Flow Rate 0 Narrative Exam Narrative: 5/5 strength in hip flexors, quadriceps, hamstrings, PF, DF, EHL on left. Sensation to light touch intact throughout LLE, calf soft and compressible. YASH over Aquacel CDI. Objective Labs 08/12/24 06:00 Labs: Laboratory Results - last 24 hr 08/12/24 06:00 Hgb 10.6 L Hct 31.2 L PFSH Medical History (Updated 07/27/24 @ 10:52 by Arcelia Batista RN) Normal cardiac ejection fraction (08/07/23) BPH (benign prostatic hyperplasia) Foreman's cyst of knee DJD (degenerative joint disease) Ascending aorta dilatation Cardiomyopathy PSVT (paroxysmal supraventricular tachycardia) HTN (hypertension) HLD (hyperlipidemia) CAD (coronary artery disease) CHF (congestive heart failure) Osteoarthritis History of cardioversion (11/09/23) A-fib Surgical History (Updated 07/27/24 @ 09:35 by Arcelia Batista RN) History of cardiac radiofrequency ablation (02/2022) History of hernia repair History of tonsillectomy Social History household members: spouse Smoking Status: Never smoker alcohol intake: current Discharge Assessment & Plan Assessment and Plan Assessment: Left knee osteoarthritis, s/p left total knee arthroplasty Plan of Treatment: Discharge home after PT, outpt PT, multimodal pain control, restart Pradaxa 08/13/2024 for VTE prophylaxis, f/u in office as scheduled. Discharge Plan Discharge Plan Patient Disposition: Home Provider Discharge Comment: Restart Pradaxa on 08/14/2024. Discharge orders & Medications Discharge Orders: Discharge (Order); Ordered 08/12/24 Ordered By: Magi Serrato Prescriptions: Continued multivitamin [Multiple Vitamins] 1 EACH tablet 1 tab PO DAILY Qty: 0 fenofibrate 160 MG tablet 160 mg PO QPM Qty: 0 acetaminophen [Tylenol Extra Strength] 500 mg Tablet 1,000 mg PO DAILY spironolactone 25 mg Tablet 12.5 mg PO DAILY ferrous gluconate 225 mg (27 mg iron) Tablet 225 mg PO DAILY amiodarone 100 mg Tablet 100 mg PO QAM diclofenac sodium [Voltaren Arthritis Pain] 1 % Gel 2 g TOPICAL QPM dabigatran etexilate [Pradaxa] 150 mg capsule 150 mg PO BID finasteride 5 mg tablet 5 mg PO QPM tamsulosin 0.4 mg capsule 0.4 mg PO QPM Follow up/Referrals: Alex Santos MD [Primary Care Provider] - Valarie Jensen MD [Physician] - As previously scheduled Diet/Activity/Treatments Diet: Diet as Tolerated Activity: Weightbearing as tolerated. Walk frequently! Cold/Heat Therapy: Ice to knee as needed for pain. Skin/Wound/Dressing Care Report to your healthcare provider any signs of infection, such as:: chills, fever, night sweats, unusual drainage and unusual redness Dressing: May remove YASH wrap and shower on 08/14/2024. Leave Aquacel dressing in place until follow up in office. No bathing or otherwise soaking incision. Call the office if the dressing becomes saturated inside. Visit Report/Discharge Packet Instructions: DI for Knee Replacement, DI for Prescription Opioid Use Stand Alone Forms: Patient Portal/API, Surgery Discharge Discharge Data Primary Care Provider: Alex Santos Attending Provider: Valarie Jensen
--- NOTE | 2024-08-12 10:38 | OT.IP.EVAL ---
Current Diagnoses Unilateral primary osteoarthritis, left knee (08/11/24) Surgery Performed Operation Date: 08/11/24 10:45 Actual Procedures p Total Knee Arthroplasty - Robot(Left) - Valarie Jensen MD Past Medical History (Last Updated 07/27/24 @ 10:52 by Arcelia Batista, RN) A-fib Ascending aorta dilatation Foreman's cyst of knee BPH (benign prostatic hyperplasia) CAD (coronary artery disease) Cardiomyopathy CHF (congestive heart failure) DJD (degenerative joint disease) History of cardioversion (11/09/23) HLD (hyperlipidemia) HTN (hypertension) Normal cardiac ejection fraction (08/07/23) Osteoarthritis PSVT (paroxysmal supraventricular tachycardia) Surgical History (Last Updated 07/27/24 @ 09:35 by Arcelia Batista, RN) History of cardiac radiofrequency ablation (02/2022) History of hernia repair History of tonsillectomy Occupational Therapy Inpatient Evaluation/Re-Eval M1 PT/OT-IP Prior Functional Status Start: 08/11/24 16:11 Freq: NEEDED Status: Active Protocol: Document 08/12/24 11:17 CGR (Rec: 08/12/24 11:59 CGR [id number]) Medical Review Prior Functional Status Medical History Reviewed Yes Diet/Fluid Consistency Regular Communication WNLs Mobility and Gait I, no AD Activities of Daily Living and IADL's Ind for all ADLs at baseline. Social History Household Members spouse Living Arrangements House Number of Floors (Floors) 3 or More Floors Number of Stairs To Enter/Railing? Tri-level. 7 steps x2 with railing up/ down to bed room. 3 steps without railing to enter one entrance and no steps back entrance. Home Environment High Toilet,Walk in Shower Home Equipment Front Wheel Walker,Grab Bars Near Toilet,Grab Bars In Shower Employment Status Retired M2 OT-IP Current Condition Start: 08/12/24 11:16 Freq: Status: Active Protocol: Document 08/12/24 11:17 CGR (Rec: 08/12/24 11:59 CGR [id number]) Occupational Therapy Current Condition Current Condition Evaluation Date 08/12/24 Treatment Diagnosis L TKA Diagnosis Onset Date 08/11/24 Weight Bearing Status Weight Bearing Status Weight Bear as Tolerated M3 OT- IP Subjective and Pain Start: 08/12/24 11:16 Freq: Status: Active Protocol: Document 08/12/24 11:17 CGR (Rec: 08/12/24 11:59 CGR [id number]) OT- Subjective Occupational Therapy Visit Type Type Initial Evaluation Visit Start Time 09:55 Visit Stop Time 10:38 OT Pain Assessment Pain When Pain Assessed At Rest Pain Present Pain Present Pain Reported Location Left Knee Intensity 5 Scale Used Numeric (0 - 10) Management Techniques Distraction,Re-positioning M4 OT- IP ADL's Start: 08/12/24 11:16 Freq: Status: Active Protocol: Document 08/12/24 11:17 CGR (Rec: 08/12/24 11:59 CGR [id number]) OT [id number] Comments OT Self-Feeding Comments Not meal time OT ADL-Grooming General Evaluation Grooming Ability Independent Areas Needing Assistance Face Washing Comments OT Grooming Comments standing at the sink OT ADL-Oral Care General Eval Oral Care Ability Independent Areas of Assistance Brushing Teeth,Retrieving/Set- Up of Items Comments Oral Care Comments Standing at sink OT ADL-Dressing Comments OT Dressing Comments Not performed, discussed with patient and . plans to do for patient. OT ADL-Toileting General Evaluation Toileting Ability Standby Assistance Comments OT Toileting Comments min a for sit to stand from toilet but pt was able to performe pericare. OT ADL-Bathing Comments OT Bathing Comments not performed M5 OT- IP IADL's Start: 08/12/24 11:16 Freq: Status: Active Protocol: Document 08/12/24 11:17 CGR (Rec: 08/12/24 11:59 CGR [id number]) OT-Instrumental Activities of Daily Living Deficits IADL Deficits Identified No Deficits Home Safety Awareness Awareness of Need for Assistance at Home Good Awareness Ability to Problem Solve Emergency Able to Problem Solve Situations Medication Management Medication Management No Deficits Identified Money Management Money Management No Deficits Identified Meal Preparation Meal Preparation No Deficits Identified Assistant General Manager Assistant General Manager No Deficits Identified Driving Driving Comments 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 M6 OT- IP Functional Cognition Start: 08/12/24 11:16 Freq: Status: Active Protocol: Document 08/12/24 11:17 CGR (Rec: 08/12/24 11:59 CGR [id number]) Cognitive Factors Limiting Selfcare Function Cognitive Ability Level of Alertness Alert Patient Orientation Name,Age,Birthday,Month,Date, Year,Day of Week,Place, Situation Attention Span Ability Capable of Focused Attention, Capable of Sustained Attention Ability to Follow Commands Able to Follow One Step Commands with Increased Time, Able to Follow One Step Commands with Repetition OT- Vision and Hearing OT- Hearing Assessment OT- Hearing Assessment WFL OT- Vision Assessment Visual Acuity WFL Visual Attentiveness WFL Occular Pursuits WFL Visual Convergence WFL Vision Assessment Comments Pt wears glasses for driving. M7 OT- IP Mobility and Balance Start: 08/12/24 11:16 Freq: Status: Active Protocol: Document 08/12/24 11:17 CGR (Rec: 08/12/24 11:59 CGR [id number]) OT- Bed Mobility Assessment Supine to Sit Supine to Sit Assist Independent Sit to Supine Sit to Supine Assist Independent Scooting Scooting to Edge of Bed Independent OT-Transfer Assessment Sit to and From Stand Sit to and from Stand Contact Guard Assistance Transfers Transfer Ability Contact Guard Assistance, Minimal Assistance Technique Transfer Destination Bed,Chair,Toilet Transfer Technique Stand Step Pivot Devices Transfer Assistive Devices Gait Belt,Front Wheeled Walker Comments Mobility Comments min a for sit to stand from toielt with use of grab bars, otherwise CGA for mobility. OT- Gait Assessment Gait Gait Assistance Required: Contact Guard Assist Assistive Devices Assistive Device Gait Belt,Front Wheeled Walker Comments Gait Ability Comments Mobility around the room. OT- Balance Assessment Sitting Balance and Reactions Static Sitting Balance Ability Good Dynamic Sitting Balance Ability Good M8 OT- IP Objective Assessments Start: 08/12/24 11:16 Freq: Status: Active Protocol: Document 08/12/24 11:17 CGR (Rec: 08/12/24 11:59 CGR [id number]) OT Gross Range of Motion Upper Extremity Range of Motion Assessment Within Functional Limits OT Strength Upper Extremity Strength Assessment Within Functional Limits Comments Strength Comments 5/5 with noted arthritis OT- Coordination Assessment Upper Extremity Finger to Nose Test Within Functional Limits Finger Tapping Test Within Functional Limits OT-Muscle Tone Assessment Muscle Tone WNL Yes OT Sensation Assessment Edema Edema Absent M9 OT- IP Assessment and Plan Start: 08/12/24 11:16 Freq: Status: Active Protocol: Document 08/12/24 11:17 CGR (Rec: 08/12/24 11:59 CGR [id number]) OT Summary Assessment and Plan Potential Rehabilitation Potential Excellent Analytic Complexity at Evaluation Low Summary OT Impairments Pain,Balance,Functional Mobility,Grooming,Dressing, Toileting,Bathing,Toilet Transfers,Shower Transfers, Activity Tolerance Progress Towards Goals Progressing Toward Goals Assessment Summary Pt presents as a low complexity evaluation s/p admit for L OFELIA. Pt is progressing well and is planned for discharge home today. Pt will need BSC or toilet safety frame for home which was discussed with pt and with . Likely safe for discharge home. Goals Grooming Goal Independent Dressing Goal Independent Toileting Goal Independent Bathing Goal Independent Toilet Transfer Goal Independent Shower Transfer Goal Independent Days to Meet Goals 2 Frequency of Treatment Other frequency 5x a week Treatment Plan OT Treatment Plan ADL Training,Functional Mobility,Patient/Family Education,Discharge Planning Other Treatment Recommendations and Next Shower Treatment Focus Discharge Recommendations OT Discharge Recommendations Home with Assistance Transportation Needs at Discharge Private Vehicle
--- NOTE | 2024-08-12 12:54 | CM.DANOTE ---
DCP Assessment Note: Pt is a 79yo male, resident of [place], is admitted for cellulitis, low O2 saturation and pulmonary edema. Pt lives in a house with her spouse and her dog, [place]. Pt's Primary Care Provider is Dr. Alex Santos and insurance is Medicare and [employer]. Reviewed chart and team rounds for pt's medical status and initial discharge needs. Per rounds, pt to get IV abx course and diuresis while admitted (under inpatient status). DCP met w/patient at bedside; introduced self and role. Present in the room is patient's and two friends. Patient was found in bed, alert and oriented, cooperative with assessment. Pt confirmed living situation and good support in . Pt expressed preference in discharging home tomorrow, if available. Still not feeling close to baseline. At pt's last admission, no other discharge needs identified and pt is currently declining any referrals for the community at this time. Plan: Anticipating discharge home with spouse tomorrow, 08/13 or when medically cleared. CM team will follow closely for coordination of discharge plans. FLORENCE Lutz Discharge Planning/Care Management Advanced directive, confirm from FAMILY Start: 08/11/24 16:50 Freq: Q24H Status: Active Protocol: Document 08/11/24 17:05 SB (Rec: 08/11/24 17:06 SB [id number]) Advance Directive, confirm on record Time 17:05 Person contacted - Tami Copy received Yes Advanced directive available on record Yes CM Discharge Assessment Start: 08/12/24 12:51 Freq: Status: Active Protocol: Document 08/12/24 12:51 MW (Rec: 08/12/24 12:54 MW [id number]) Discharge Planning Assessment Assigned Senior Hris Analyst ASHELY Dueñas DPOA/Assigned Designee Name Chang Han, Spouse Contact Information [phone] Advance Directives? Yes Advance Directives on File No: with spouse History Provided By Patient,Family Member,Medical Record Has Patient been admitted in last 30 No days? Comment Last admission: 06/21 - 06/24 Prior Living Arrangements House Household Members spouse Type of transporation used prior to Drives own vehicle admit Independent with ADL's Yes Is patient alert and oriented? Yes Caregiver for Another No Barriers to Discharge No Discharge Plan Home Transportation Arrangement Spouse to transport home. Referrals Initiated None needed Whiteboard Updated in Patient Room with Yes name and ext. # of Senior Hris Analyst Comment [phone] Review Status In Process Please Provide Date Initial DC 08/12/24 Assessment Was Performed Next Review Type Continued Stay Review
--- NOTE | 2024-08-12 13:03 | CM.DANOTE ---
DCP Assessment Note: Pt is a 79yo male, resident of [place], is s/p L TKA. Pt lives in a house with his , Tomasa. Pt's Primary Care Provider is Dr. Alex Santos and insurance is [employer]. Reviewed chart and team rounds for pt's medical status and initial discharge needs. DCP met w/patient at bedside; introduced self and role. Patient was found in bed, alert and oriented, cooperative with assessment. Pt confirmed living situation and good support in . Pt expressed preference in discharging home today. Pt has no hx of SNF Rehab or HH. PT recommending home with assistance, pt agreeable with this plan. No other needs identified by patient, declined referral to community services at this time. Plan: Anticipating discharge home with spouse when medically cleared. CM team will follow closely for coordination of discharge plans. FLORENCE Lutz Discharge Planning/Care Management Advanced directive, confirm from FAMILY Start: 08/11/24 16:50 Freq: Q24H Status: Active Protocol: Document 08/11/24 17:05 SB (Rec: 08/11/24 17:06 SB [id number]) Advance Directive, confirm on record Time 17:05 Person contacted - Tami Copy received Yes Advanced directive available on record Yes CM Discharge Assessment Start: 08/12/24 12:51 Freq: Status: Active Protocol: Document 08/12/24 12:51 MW (Rec: 08/12/24 12:54 MW [id number]) Discharge Planning Assessment Assigned Silk Screen Frame Assembler ASHELY Dueñas DPOA/Assigned Designee Name Sophia, Spouse Contact Information [phone] Advance Directives? Yes Advance Directives on File No: with spouse History Provided By Patient,Family Member,Medical Record Has Patient been admitted in last 30 No days? Prior Living Arrangements House Household Members spouse Type of transporation used prior to Drives own vehicle admit Independent with ADL's Yes Is patient alert and oriented? Yes Caregiver for Another No Barriers to Discharge No Discharge Plan Home Transportation Arrangement Spouse to transport home. Referrals Initiated None needed Whiteboard Updated in Patient Room with Yes name and ext. # of Silk Screen Frame Assembler Comment [phone] Review Status In Process Please Provide Date Initial DC 08/12/24 Assessment Was Performed Next Review Type Continued Stay Review
--- NOTE | 2024-08-12 14:22 | PC.NURSE ---
Discharge: Pt feels ready to d/c to home. Seen by PA and given discharge instructions. Seen by PT and he is safe to go home. BP sl low when getting up and moving. Down to 80's systolic but as soon as he returned to chair he was back uo to 113 systolic. No dizziness, did hold spironolactone. Pt does have a bp cuff at home. Discussed how/when to notify MD. Given instructions on how to take your bp at home and written information. Pt d\c to home via auto w/spouse. Voiced no concerns.
== END 2024-08-12 14:15 | disposition home or self-care (01) ==
LOC: OR 08:46 → AC 08:46
PROVIDERS: Family Provider Family Medicine; PCP Family Medicine; Referring Provider Orthopaedic Surgery; Visit Provider Orthopaedic Surgery
PROC: 0SRD0JZ Replacement of Left Knee Joint with Synthetic Substitute, Open Approach (ICD-10-PCS; CPT 27447; principal; 2024-08-11 10:45)
DX: M17.12 Unilateral primary osteoarthritis, left knee (principal); M25.762 Osteophyte, left knee
CPT/HCPCS: 27447; 36415; 73560; 85014; 85018; 97161; 97165; 97530; 97535; C1776; C9290; J0171; J0330; J0690; J1171; J2405; J2704; J3010

== ENCOUNTER → 2024-12-27 11:05 | Outpatient (CLI) | payer OTHER, SELFPAY ==
[2024-08-11 16:43] VITALS: BMI 23.5
== END ==
PROVIDERS: Family Provider Family Medicine; PCP Family Medicine; Referring Provider Internal Medicine Cardiovascular Disease; Visit Provider Internal Medicine Cardiovascular Disease
DX: R94.2 Abnormal results of pulmonary function studies (principal); Z79.899 Other long term (current) drug therapy; I48.0 Paroxysmal atrial fibrillation
CPT/HCPCS: 94060; 94726; 94729

== ENCOUNTER → 2025-01-17 12:24 | Outpatient (CLI) | payer OTHER, SELFPAY ==
[2024-08-11 16:43] VITALS: BMI 23.5
--- NOTE | 2025-01-17 12:24 | DI.ECHO.S_ITS ---
[facility] : : [address] : : [place] : : [id number] : : Phone: [phone] Echocardiogram Report + + :Name: SAVANNAH WINSTON Study Date: 01/17/2025 Height: 76 in : :[facility] ReadingLocation: Weight: 195 lb : : Gender: Male BSA: 2.2 m2 : :: 1945 Age: 79 yrs BP: 156/88 mmHg: :Reason For Study: ASCENDING AORTA ENLARGEMENT : :Ordering Physician: ALVIN, : :SHANITA Performed By: Amy Hayes : :Referring: SHANITA ESQUIVEL : + + Interpretation Summary There is mild concentric left ventricular hypertrophy. The ejection fraction is estimated to be 55-60%. Diastolic function could not be accurately assessed due to unobtainable data. The left atrium is moderately dilated. The right ventricle is at the upper limits of normal in size. The right ventricular systolic function is normal. The right atrium is mildly dilated. There is mild to moderate mitral regurgitation. There is mild aortic regurgitation. There is moderate tricuspid regurgitation. The right ventricular systolic pressure is estimated to be at least 37 mmHg based on an estimated right atrial pressure of 3 mm Hg. 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 Compared to the prior study 08/07/2023, the pulmonary artery systolic pressure has decreased. Procedure: A two-dimensional transthoracic echocardiogram with color flow and Doppler was performed. The study quality was technically adequate. Comparison is made with the echocardiogram of 08/07/2023. The patient was in normal sinus rhythm during the exam. The patient had occasional PACs during the exam. Left Ventricle: The left ventricle is normal in size. There is mild concentric left ventricular hypertrophy. The ejection fraction is estimated to be 55-60%. Diastolic function could not be accurately assessed due to unobtainable data. Right Ventricle: The right ventricle is at the upper limits of normal in size. The right ventricular systolic function is normal. Atria: The left atrium is moderately dilated. The right atrium is mildly dilated. There is no Doppler evidence for an interatrial shunt. Mitral Valve: The mitral valve leaflets appear mildly thickened, but open well. There is mild to moderate mitral regurgitation. Aortic Valve: The aortic valve is trileaflet. The aortic valve opens well. There is no aortic valve stenosis. There is mild aortic regurgitation. Tricuspid Valve: The tricuspid valve leaflets are thin and pliable. There is moderate tricuspid regurgitation. The right ventricular systolic pressure is estimated to be at least 37 mmHg based on an estimated right atrial pressure of 3 mm Hg. Pulmonic Valve: The pulmonic valve is not well visualized. There is trace pulmonic regurgitation. Great Vessels: The aortic root is normal size. The ascending aorta is mild- moderately enlarged. The IVC is of normal diameter and collapses greater than 50% with a sniff. This suggests a low right atrial pressure of 3 mm Hg. Pericardium/ Pleura There is no pericardial effusion. There is no pleural effusion. MMode/2D Measurements & Calculations LVIDd: 5.0 cm LVOT diam: 2.3 cm LVIDs: 3.2 cm Ao root diam: 3.7 cm FS: 34.7 % asc Aorta Diam: 4.3 cm EPSS: 0.57 cm IVSd: 1.2 cm LVPWd: 1.1 cm LV king. diameter/BSA (cm/m^2): 2.3 LV sys. diameter/BSA (cm/m^2): 1.5 LA A2 area: 27.4 cm2 RA long axis: 6.2 cm LA A4 area: 27.4 cm2 RA area: 23.3 cm2 LA length (vol): 6.6 cm RA vol: 74.1 ml LA vol: 96.1 ml RA : 33.8 ml/m2 LA vol index: 43.8 ml/m2 IVC diam: 1.8 cm RVD1 (basal): 4.2 cm RVD2 (mid): 3.1 cm TAPSE: 1.8 cm Doppler Measurements & Calculations Ao V2 max: 126.5 cm/sec LVOT Max Bartolo: 84.2 cm/sec Ao V2 mean: 88.1 cm/sec LV V1 max P.9 mmHg Ao max P.4 mmHg LV V1 VTI: 17.3 cm Ao mean P.4 mmHg CHET(I,D): 2.7 cm2 Ao V2 VTI: 27.2 cm CHET(V,D): 2.8 cm2 sev ratio: 0.64 CHET indexed to BSA (cm^2/m^2): 1.2 AI P1/2t: 603.1 msec AI dec slope: 233.5 cm/sec2 MV E max bartolo: 66.5 cm/sec TR max bartolo: 290.8 cm/sec MV A max bartolo: 0.51 cm/sec TR max P.8 mmHg MV E/A: 131.1 PA V2 max: 74.6 cm/sec Med Peak E' Bartolo: 8.0 cm/sec PA V2 mean: 48.8 cm/sec E/E' med: 8.3 PA mean P.1 mmHg Lat Peak E' Bartolo: 13.3 cm/sec PA pr(Accel): 40.5 mmHg E/E' lat: 5.0 E/e' average: 6.6 MV dec time: 0.30 sec MR ERO: 0.08 cm2 MR PISA: 1.2 cm2 SV(LVOT): 72.3 ml MR flow rate: 46.4 cm3/sec MR PISA radius: 0.44 cm Reading Physician:02:25 PM
== END ==
LOC: ECHO 12:24
PROVIDERS: Family Provider Family Medicine; PCP Family Medicine; Referring Provider Nurse Practitioner Acute Care; Visit Provider Nurse Practitioner Acute Care
DX: I77.89 Other specified disorders of arteries and arterioles (principal); I08.3 Combined rheumatic disorders of mitral, aortic and tricuspid valves
CPT/HCPCS: 93306